=== PATIENT | male | born 1950 | race Caucasian/White ===

== ENCOUNTER → 2016-03-03 | Day surgery (SDC) | payer BC ==
[2016-02-27 15:04] VITALS: Ht 177.8 cm; Wt 79.5 kg
[~2016-03-03] VITALS: Ht 177.8 cm; Wt 79.5 kg
[~2016-03-03] MED LIST: 500ML BSS 0.3ML EPI 1:1000PF IRRIG ONE; ACETAMINOPHEN 325 MG TAB PO PRN; AMVISC PLUS 0.8ML SYRINGE INT OCU ONE; ATROPINE SULFATE 0.1 MG/ML 5ML SYR IV PRN; BROM0.07 OPR; BSS FLUSH ONE; EpHEDrine SULFATE INJ 50 MG/ML AMP IV PRN; EpINEphrine INJ 1MG/ML AMP 1 MG/ML AMP ONE; FENTANYL CITRATE INJ 50 MCG/1 ML 2 ML VIAL IV PRN; FLUMAZENIL 0.1 MG/1 ML 10 ML VIAL IV PRN; HYDROmorphone INJ 2 MG/ML SYR/VIAL IV PRN; LABETALOL HCL IV 5 MG/ML 20ML IV PRN; LACTATED RINGER'S 1000ML 500 ML IV SCH; LIDOCAINE 3.5% OPH GEL PER APPLICATION CHARGE ONE; LIDOCAINE HCL 1% MPF 2 ML VIAL ONE; MEPERIDINE HCL 25 MG/ML CARP IV PRN; MIDAZOLAM HCL 1 MG/ML 2ML VIAL ONE; NALOXONE HCL 0.4 MG/1 ML VIAL/CARP IV PRN; ONDANSETRON INJ 2 MG/ML 2 ML VIAL IV PRN; PHENYLEPHRINE 100MCG/ML 5ML SYR IV PRN; PHENYLEPHRINE HCL 10% OP SOLN PER DROP CHARGE OPR SCH; POVIDONE-IODINE OP SOLN 30 ML BTL ONE; PRED1SUS3 OPR; PROPARACAINE 0.5% OP SOLN PER DROP CHARGE OPR SCH; SODIUM CHLORIDE 0.9% 500ML IV SCH; TOBRAMYCIN/DEXAMETHASONE OPH OINT PER APPLN CHARGE ONE
[2016-03-03] MEDS: PHENYLEPHRINE HCL 2.5% OP SOLN PER DROP CHARGE OPR SCH ×2 (07:29→07:34)
[2016-03-03] MEDS: TROPICAMIDE 1% OP SOLN PER DROP CHARGE OPR SCH ×2 (07:30→07:35)
[2016-03-03] MEDS: CYCLOPENTOLATE HCL 1% OP SOLN PER DROP CHARGE OPR SCH ×2 (07:31→07:36)
[2016-03-03] MEDS: KETOROLAC 0.5% OP SOLN PER DROP CHARGE OPR SCH ×2 (07:32→07:37)
[2016-03-03] MEDS: GATIFLOXACIN OP SOLN PER DROP CHARGE OPR SCH ×2 (07:33→07:43)
--- NOTE | 2016-03-03 07:51 | History & Physical Bridge - [place] ---
H&P Re-Evaluation Bridge Note: I have examined the patient, reviewed the History & Physical and in the interval since the performance of the History & Physical I have noted the following changes of clinical significance: No changes noted
--- NOTE | 2016-03-03 08:33 | Discharge Instructions-SurgCtr ---
Discharge Instructions Visit Reason for Visit: Cataract Right Eye Discharge Discharge Diagnosis / Problem: cataract Discharge Goals Goal(s): Improve function Activity Recommendations Activity Limitations: per Instructions/Follow-up section Anesthesia . Post Anesthesia Instructions: If you have had General Anesthesia or IV Sedation: * Do not drive today. * Resume driving when surgeon permits. * Do not make important decisions or sign legal documents today. * Call surgeon for: 1. Temperature elevations greater than 101 degrees F. 2. Uncontrollable pain. 3. Excessive bleeding. 4. Persistent nausea and vomiting. 5. Medication intolerance (nausea, vomiting or rash). * For nausea and vomiting use only clear liquids such as: tea, soda, bouillon until nausea subsides, then gradually increase diet as tolerated. * If you have any concerns or questions, call your surgeon's office. If physician is unavailable and it is an emergency, call 911 or go to the nearest emergency room. . Instructions / Follow-Up Instructions / Follow-Up ACTIVITY RECOMMENDATIONS: * No strenuous lifting, jogging or running for 4 days * No swimming or yard work for 1 week. * Limited bending is permitted, such as putting on shoes. RETURN TO SCHOOL/WORK: No work until seen by physician in office. MEDICATIONS: Resume previous medications unless instructed otherwise by your surgeon. This includes eye drops for glaucoma. Zymaxid/Gatifloxacin (amaro cap) - one drop every 2 hours until bedtime Nevanac/Ilevro/Prolensa/Ketorolac (cano cap) - one drop every 4 hours until bedtime Prednisolone (white/pink cap, SHAKE WELL) - one drop every 2 hours until bedtime Starting tomorrow - all 3 drops every 4 hours until seen in the office Optive drops - as needed for discomfort SPECIAL CARE INSTRUCTIONS: * Wear eyeshield when sleeping, for four nights. * You may wear your own glasses or sunglasses while awake. * You may read or watch TV * You may shower and wash your face, but be gentle around the eye and pat dry. * Blurry vision and mild irritation are normal. * Call office if pain is more severe or vision becomes dark at . FOLLOW UP VISIT: Follow-up with Dr Bernard tomorrow. Diet Recommendations Home Diet: resume previous diet Pending Studies Studies pending at discharge: no Medical Emergencies . Who to Call and When: Medical Emergencies: If at any time you feel your situation is an emergency, please call 911 immediately. . Non-Emergent Contact Non-Emergency issues call your: Mlt . . "Provider Documentation" section prepared by Jesse Bernard.
--- NOTE | 2016-03-03 08:34 | [facility] Operative Report ---
Operative Report 1. PREOPERATIVE DIAGNOSIS: Cataract of the right eye. 2. POSTOPERATIVE DIAGNOSIS: Same. 3. PROCEDURE: Phacoemulsification with intraocular lens implantation of the right eye. SURGEON: Dr. Jesse Bernard. ANESTHESIA: Topical Lidocaine gel, 1% Non- Preserved intracameral Lidocaine, and monitored intravenous sedation. INDICATIONS FOR THE PROCEDURE: The patient is a 65 - year-old male with a history of cataract of the right eye causing significant visual impairment. The details of the proposed procedure were explained to the patient who asked appropriate questions and following discussion of all risks, benefits and alternatives agreed to have the procedure done. 4. OPERATION AND FINDINGS: DESCRIPTION OF PROCEDURE: After informed consent was obtained, the patient was brought to the Operating Room at the [facility]. The patient was placed in a supine position and then the right eye was prepped and draped in the usual sterile fashion for intraocular surgery. A drop of topical Lidocaine gel was placed in the operative eye. A wire lid speculum was then placed in the fornices. A corneal paracentesis was then created temporally. The Non-Preserved Lidocaine was then instilled into the anterior chamber. The anterior chamber was then pressurized with viscoelastic. A 2.0 mm clear corneal incision was then created temporally. A cystotome was inserted into the anterior chamber and used to create a tear in the anterior lens capsule. This capsular tear was then used to create a small flap and the flap was dragged in a counterclockwise direction in order to create a continuous curvilinear capsulorrhexis. Hydrodissection was accomplished with balanced salt solution. Phacoemulsification of the lens nucleus was then performed in a standard [id number] technique. The phaco time was 31 seconds with an average power of 19 %. The remaining cortical material was removed using irrigation aspiration. The capsular bag was then filled with viscoelastic. A Bausch & Lomb MI60L +24.5 diopters lens was then loaded into the injector and injected into the capsular bag. The remaining viscoelastic was removed with the irrigation aspiration handpiece. The wound was hydrated and then checked and found to be watertight. The intraocular pressure was checked and found to be adequate. The wire lid speculum was removed and the patient's face was cleaned and dried. TobraDex ointment was placed in the inferior fornix. The patient was discharged to the Recovery Room having tolerated the procedure well. There were no complications. The patient will be seen tomorrow in the office for follow-up. I attest to the content of the Intraoperative Record and any orders documented therein. Any exceptions are noted below.
[2016-03-03 08:36] VITALS: TEMP 36.9
--- NOTE | 2016-03-03 08:50 | Anesthesia Progress Nt - [facility] ---
Anesthesia Post Op Note Date & Time Mar 03, 2016 at 08:50 Vital Signs Pain Intensity: 0 Vital Signs Past 12 Hours Date Time Temp Pulse Resp B/P Pulse Ox O2 Delivery O2 Flow Rate FiO2 03/03/16 08:36 36.9 73 16 105/70 96 Room Air 03/03/16 07:21 36.5 83 16 135/83 100 Room Air Notes Mental Status: alert / awake / arousable, participated in evaluation Pt Amnestic to Procedure: Yes Nausea / Vomiting: adequately controlled Pain: adequately controlled Airway Patency, RR, SpO2: stable & adequate BP & HR: stable & adequate Hydration State: stable & adequate Anesthetic Complications: no major complications apparent
[2016-03-03 09:07] VITALS: BP 119/81; PULSE 76; O2SAT 98
== END | disposition home or self-care (01) ==
LOC: X.SURG 07:13
PROVIDERS: ATTEND Ophthalmology
DX: H26.9 Unspecified cataract (principal)

== ENCOUNTER → 2016-03-24 | Day surgery (SDC) | payer BC ==
[2016-03-16 10:11] VITALS: Ht 177.8 cm; Wt 79.5 kg
[~2016-03-24] VITALS: Ht 177.8 cm; Wt 79.5 kg
[~2016-03-24] MED LIST changes: -FENTANYL CITRATE INJ 50 MCG/1 ML 2 ML VIAL IV PRN; -FLUMAZENIL 0.1 MG/1 ML 10 ML VIAL IV PRN; -HYDROmorphone INJ 2 MG/ML SYR/VIAL IV PRN; -LABETALOL HCL IV 5 MG/ML 20ML IV PRN; -MEPERIDINE HCL 25 MG/ML CARP IV PRN; -NALOXONE HCL 0.4 MG/1 ML VIAL/CARP IV PRN; +OCUCOAT 1 ML SOLN IO ONE; -ONDANSETRON INJ 2 MG/ML 2 ML VIAL IV PRN; -PHENYLEPHRINE 100MCG/ML 5ML SYR IV PRN; +PHENYLEPHRINE HCL 10% OP SOLN PER DROP CHARGE OPL SCH; -PHENYLEPHRINE HCL 10% OP SOLN PER DROP CHARGE OPR SCH; +PROPARACAINE 0.5% OP SOLN PER DROP CHARGE OPL SCH; -PROPARACAINE 0.5% OP SOLN PER DROP CHARGE OPR SCH; -SODIUM CHLORIDE 0.9% 500ML IV SCH
[2016-03-24] MEDS: PHENYLEPHRINE HCL 2.5% OP SOLN PER DROP CHARGE OPL SCH ×2 (10:56→11:02)
[2016-03-24] MEDS: TROPICAMIDE 1% OP SOLN PER DROP CHARGE OPL SCH ×2 (10:57→11:03)
[2016-03-24] MEDS: CYCLOPENTOLATE HCL 1% OP SOLN PER DROP CHARGE OPL SCH ×2 (10:58→11:04)
[2016-03-24] MEDS: KETOROLAC 0.5% OP SOLN PER DROP CHARGE OPL SCH ×2 (10:59→11:05)
[2016-03-24] MEDS: GATIFLOXACIN OP SOLN PER DROP CHARGE OPL SCH ×2 (11:00→11:10)
--- NOTE | 2016-03-24 11:16 | History & Physical Bridge - [place] ---
H&P Re-Evaluation Bridge Note: I have examined the patient, reviewed the History & Physical and in the interval since the performance of the History & Physical I have noted the following changes of clinical significance: Diagnosis: Left Cataract Procedure: Left Cataract Removal with Lens Implant No changes noted
--- NOTE | 2016-03-24 12:01 | Discharge Instructions-SurgCtr ---
Discharge Instructions Visit Reason for Visit: Cataract Left Eye Discharge Discharge Diagnosis / Problem: cataract Discharge Goals Goal(s): Improve function Activity Recommendations Activity Limitations: per Instructions/Follow-up section Anesthesia . Post Anesthesia Instructions: If you have had General Anesthesia or IV Sedation: * Do not drive today. * Resume driving when surgeon permits. * Do not make important decisions or sign legal documents today. * Call surgeon for: 1. Temperature elevations greater than 101 degrees F. 2. Uncontrollable pain. 3. Excessive bleeding. 4. Persistent nausea and vomiting. 5. Medication intolerance (nausea, vomiting or rash). * For nausea and vomiting use only clear liquids such as: tea, soda, bouillon until nausea subsides, then gradually increase diet as tolerated. * If you have any concerns or questions, call your surgeon's office. If physician is unavailable and it is an emergency, call 911 or go to the nearest emergency room. . Instructions / Follow-Up Instructions / Follow-Up ACTIVITY RECOMMENDATIONS: * No strenuous lifting, jogging or running for 4 days * No swimming or yard work for 1 week. * Limited bending is permitted, such as putting on shoes. RETURN TO SCHOOL/WORK: No work until seen by physician in office. MEDICATIONS: Resume previous medications unless instructed otherwise by your surgeon. This includes eye drops for glaucoma. Zymaxid/Gatifloxacin (amaro cap) - one drop every 2 hours until bedtime Nevanac/Ilevro/Prolensa/Ketorolac (cano cap) - one drop every 4 hours until bedtime Prednisolone (white/pink cap, SHAKE WELL) - one drop every 2 hours until bedtime Starting tomorrow - all 3 drops every 4 hours until seen in the office Optive drops - as needed for discomfort SPECIAL CARE INSTRUCTIONS: * Wear eyeshield when sleeping, for four nights. * You may wear your own glasses or sunglasses while awake. * You may read or watch TV * You may shower and wash your face, but be gentle around the eye and pat dry. * Blurry vision and mild irritation are normal. * Call office if pain is more severe or vision becomes dark at . FOLLOW UP VISIT: Follow-up with Dr Bernard tomorrow. Procedures Procedures Performed: Left Cataract Phacoemulsification With Intraocular Lens Implant Pending Studies Studies pending at discharge: no Medical Emergencies . Who to Call and When: Medical Emergencies: If at any time you feel your situation is an emergency, please call 911 immediately. . Non-Emergent Contact Non-Emergency issues call your: [employer] . . "Provider Documentation" section prepared by Jesse Bernard.
--- NOTE | 2016-03-24 12:02 | [facility] Operative Report ---
Operative Report 1. PREOPERATIVE DIAGNOSIS: Cataract of the left eye. 2. POSTOPERATIVE DIAGNOSIS: Same. 3. PROCEDURE: Phacoemulsification with intraocular lens implantation of the left eye. SURGEON: Dr. Jesse Bernard. ANESTHESIA: Topical Lidocaine gel, 1% Non- Preserved intracameral Lidocaine, and monitored intravenous sedation. INDICATIONS FOR THE PROCEDURE: The patient is a 65 - year-old male with a history of cataract of the left eye causing significant visual impairment. The details of the proposed procedure were explained to the patient who asked appropriate questions and following discussion of all risks, benefits and alternatives agreed to have the procedure done. 4. OPERATION AND FINDINGS: DESCRIPTION OF PROCEDURE: After informed consent was obtained, the patient was brought to the Operating Room at the [facility]. The patient was placed in a supine position and then the left eye was prepped and draped in the usual sterile fashion for intraocular surgery. A drop of topical Lidocaine gel was placed in the operative eye. A wire lid speculum was then placed in the fornices. A corneal paracentesis was then created temporally. The Non-Preserved Lidocaine was then instilled into the anterior chamber. The anterior chamber was then pressurized with viscoelastic. A 2.0 mm clear corneal incision was then created temporally. A cystotome was inserted into the anterior chamber and used to create a tear in the anterior lens capsule. This capsular tear was then used to create a small flap and the flap was dragged in a counterclockwise direction in order to create a continuous curvilinear capsulorrhexis. Hydrodissection was accomplished with balanced salt solution. Phacoemulsification of the lens nucleus was then performed in a standard [id number] technique. The phaco time was 24 seconds with an average power of 12 %. The remaining cortical material was removed using irrigation aspiration. The capsular bag was then filled with viscoelastic. A Bausch & Lomb MI60L +24.5 diopters lens was then loaded into the injector and injected into the capsular bag. The remaining viscoelastic was removed with the irrigation aspiration handpiece. The wound was hydrated and then checked and found to be watertight. The intraocular pressure was checked and found to be adequate. The wire lid speculum was removed and the patient's face was cleaned and dried. TobraDex ointment was placed in the inferior fornix. The patient was discharged to the Recovery Room having tolerated the procedure well. There were no complications. The patient will be seen tomorrow in the office for follow-up. I attest to the content of the Intraoperative Record and any orders documented therein. Any exceptions are noted below.
--- NOTE | 2016-03-24 12:20 | Anesthesia Progress Nt - [facility] ---
Anesthesia Post Op Note Date & Time Mar 24, 2016 at 12:20 Vital Signs Pain Intensity: 0 Vital Signs Past 12 Hours Date Time Temp Pulse Resp B/P Pulse Ox O2 Delivery O2 Flow Rate FiO2 03/24/16 12:04 37.6 78 16 114/76 97 Room Air 03/24/16 10:50 36.8 84 20 134/86 98 Room Air Notes Mental Status: alert / awake / arousable, participated in evaluation Pt Amnestic to Procedure: Yes Nausea / Vomiting: adequately controlled Pain: adequately controlled Airway Patency, RR, SpO2: stable & adequate BP & HR: stable & adequate Hydration State: stable & adequate Anesthetic Complications: no major complications apparent
[2016-03-24 12:28] VITALS: BP 128/77; PULSE 71; TEMP 37; O2SAT 100
== END | disposition home or self-care (01) ==
LOC: X.SURG 10:33
PROVIDERS: ATTEND Ophthalmology
DX: H26.9 Unspecified cataract (principal); Z98.41 Cataract extraction status, right eye; Z82.49 Family history of ischemic heart disease and other diseases of the circulatory system; Z80.42 Family history of malignant neoplasm of prostate; Z68.25 Body mass index [BMI] 25.0-25.9, adult

== ENCOUNTER → 2017-02-09 | Outpatient (CLI) | payer BC ==
[~2017-02-09] MED LIST changes: -500ML BSS 0.3ML EPI 1:1000PF IRRIG ONE; -ACETAMINOPHEN 325 MG TAB PO PRN; -AMVISC PLUS 0.8ML SYRINGE INT OCU ONE; -ATROPINE SULFATE 0.1 MG/ML 5ML SYR IV PRN; -BSS FLUSH ONE; -EpHEDrine SULFATE INJ 50 MG/ML AMP IV PRN; -EpINEphrine INJ 1MG/ML AMP 1 MG/ML AMP ONE; -LACTATED RINGER'S 1000ML 500 ML IV SCH; -LIDOCAINE 3.5% OPH GEL PER APPLICATION CHARGE ONE; -LIDOCAINE HCL 1% MPF 2 ML VIAL ONE; -MIDAZOLAM HCL 1 MG/ML 2ML VIAL ONE; -OCUCOAT 1 ML SOLN IO ONE; -PHENYLEPHRINE HCL 10% OP SOLN PER DROP CHARGE OPL SCH; -POVIDONE-IODINE OP SOLN 30 ML BTL ONE; -PROPARACAINE 0.5% OP SOLN PER DROP CHARGE OPL SCH; -TOBRAMYCIN/DEXAMETHASONE OPH OINT PER APPLN CHARGE ONE
--- NOTE | 2017-02-09 09:25 | DIAGNOSTIC IMAGING REPORT ---
CHEST 2 VIEWS ROUTINE CLINICAL HISTORY: 66 years-old Male presenting with CHRONIC COUGH. TECHNIQUE: PA and lateral views of the chest were obtained. COMPARISON: None. FINDINGS: Atherosclerosis of aortic arch. Cardiac silhouette normal in size. Mild hyperinflation of the lungs. Lungs and pleural spaces clear. Degenerative changes of the thoracic spine. Upper abdomen normal. IMPRESSION: 1. Mild hyperinflation could suggest underlying emphysema. Otherwise no acute cardiopulmonary disease. Electronically signed by: Cristian Smith M.D. 02/09/2017 9:23 AM Dictated Date/Time: 02/09/2017 9:22 AM
[2017-02-09 13:29] LABS: BLOOD UREA NITROGEN 17 mg/dl (7-18); CARBON DIOXIDE 26 mmol/L (21-32); CHOLESTEROL 238 mg/dl (0-200); CREATININE 1.15 mg/dl (0.60-1.40); GLUCOSE 100 mg/dl (70-99); POTASSIUM 4.3 mmol/L (3.5-5.1); SODIUM 137 mmol/L (136-145)
[2017-02-09 13:35] LABS: LDL CHOLESTEROL CALCULATED 160 mg/dl
== END | disposition home or self-care (01) ==
LOC: C.LABPVFM 08:59
PROVIDERS: ATTEND Family Medicine
DX: Z12.5 Encounter for screening for malignant neoplasm of prostate (principal); Z13.1 Encounter for screening for diabetes mellitus; R35.1 Nocturia; E78.5 Hyperlipidemia, unspecified; R05 Cough

== ENCOUNTER 2020-08-05 23:53 | Inpatient (IN) ==
[2020-08-06] MEDS ORDERED: DEXAMETHASONE SOD INJ 4 MG/ML VIAL IV STA (01:21)
[2020-08-06] MEDS ORDERED: SODIUM CHLORIDE 0.9% 500 ML IV ONE (01:21)
[2020-08-06 01:36] LABS: Basophils # (auto) 0.03 K/uL (0-0.2); Basophils % (auto) 0.2 %; Eosinophils # (auto) 0.02 K/uL (0-0.5); Eosinophils % (auto) 0.1 %; Hematocrit (blood only) 45.7 % (42-52); Hemoglobin 16.1 g/dL (14.0-18.0); Immature Granulocytes # (auto) 0.04 K/uL (0.00-0.02); Immature Granulocytes % (auto) 0.3 %; Lymphocytes % (auto) 9.5 %; Mean Corpuscular Hemoglobin 32.9 pg (25-34); Mean Corpuscular Hgb Conc 35.2 g/dL (32-36); Mean Corpuscular Volume 93.5 fL (80-100); Mean Platelet Volume 10.3 fL (7.4-10.4); Monocytes % (auto) 10.2 %; Neutrophils # (auto) 12.52 K/uL (1.4-6.5); Neutrophils % (auto) 79.7 %; Platelet Count 207 K/uL (130-400); RDW Coefficient of Variation 12.5 % (11.5-14.5); RDW Standard Deviation 43.3 fL (36.4-46.3); Red Blood Count 4.89 M/uL (4.7-6.1); White Blood Count 15.71 K/uL (4.8-10.8)
[2020-08-06 01:53] LABS: Albumin Level 3.9 gm/dl (3.4-5.0); BUN Creatinine Ratio 8.8 (10-20); Calcium 9.3 mg/dl (8.5-10.1); Creatinine Clr Calc Pharmacy 62.9 ml/min; Est GFR (African American) 76.7 ml/min; Est GFR (Non-African American) 66.2 ml/min
[2020-08-06 01:55] LABS: Bilirubin,Total 1.2 mg/dl (0.2-1); Total Protein 7.9 gm/dl (6.4-8.2)
[2020-08-06] MEDS ORDERED: OPTIRAY 320 100ml IV ONE (02:32)
--- NOTE | 2020-08-06 04:20 | Emergency Department Note ---
Impression & Plan Acute epiglottitis ED Provider Note NAME: NADIA LUNDY AGE: 69 SEX: M ARRIVES VIA: Walk-In INFORMANT: Patient ED PROVIDER(S): Mally Landeros DO CHIEF COMPLAINT: Severe sore throat PLAN: Disposition: Admitted to the ICU Condition: Critical MEDICAL DECISION MAKING: This is a 69-year-old male patient who presents to the emergency department with a severe sore throat. Patient felt as if he was choking on his own spit. He had a distorted voice and would apply pressure to his neck in order to speak. CT scan confirmed evidence of epiglottitis with airway narrowing. I discussed the case with Dr. Newell and Dr. Jeffries. I consulted Dr. Kumar from ENT and she came to the emergency department to evaluate the patient and scoped him at the bedside. Triage Nursing notes reviewed and agree with them. Additional history obtained from as is at the bedside Vital Signs: reviewed and unremarkable Differential diagnosis: Pharyngitis, tonsillitis, epiglottitis, COVID-19, mono, strep throat ER treatment provided: IV Decadron IV normal saline IV vancomycin IV Rocephin Diagnostics interpreted by me: Cardiac Monitoring: Normal sinus rhythm at a rate of 78 Laboratory studies: See below Imaging studies: As per stat rad CT neck: Diffuse enlarged and edematous epiglottis consistent with epiglottitis with severe narrowing of the underlying airway. Near complete effacement of the vallecula and piriform sinuses. Mildly enlarged right tonsil with 7 x 11 mm central hypodensity consistent with tonsillitis with tonsillar abscess. Patent subglottic airway. Cervical soft tissues are unremarkable. No mass or adenopathy. Visualized upper lungs and mediastinal structures are unremarkable. No acute osseous abnormality. Mucous retention cyst or polyp in the right maxillary sinus. Consultation(s): Dr. Kumar-ENT HPI: 69/M arrives for evaluation of sore throat. The patient presents to the emergency department with a worsening sore throat that started yesterday. The patient called his primary care office earlier in the day complaining of a severe sore throat. They recommended the patient get COVID-19 testing but he declined. Patient notes that he has a tooth in the bottom right part of his mouth that has been bothering him and wondered if the throat pain could be coming from this. He then became concerned when he started to choke on his own spit. He denies any nausea vomiting or fevers. ROS: See above HPI for pertinent positives & negatives. A total of 10 systems reviewed and were otherwise negative. PAST MEDICAL HISTORY:See Below PAST SURGICAL HISTORY:See Below FAMILY HISTORY:See Below SOCIAL HISTORY:See Below HOME MEDICATIONS:See list ALLERGIES:None VITALS:See Below PHYSICAL EXAMINATION: HEENT: Head - normocephalic and atraumatic Pupils are equal, round, and reactive to light. Extraocular eye muscles are intact, and sclera are anicteric. Nose - moist nasal mucosa without discharge. Mouth - moist buccal mucosa. Oropharynx is nonerythematous and there is no tonsillar exudate or edema noted. The patient has significant gingival irritation and decay with fracture to a right lower molar Neck: Supple; moderate anterior cervical lymphadenopathy on the right with no evidence of nuchal rigidity or submental fullness. Heart: Regular rate and rhythm. There is a normal S1 and S2 with no murmurs, clicks, or gallops appreciated. Lungs: Clear to auscultation bilaterally with no wheezes, rales, or rhonchi. Abdomen: Soft, completely nontender, nondistended, with good bowel sounds. There are no palpable pulsatile masses or hepatosplenomegaly. There is no guarding, rigidity, or rebound noted. Extremities: No evidence of cyanosis, clubbing, or edema. There are easily palpable peripheral pulses. Skin: warm and dry with good turgor and no rashes. ED COURSE: Times/Reassessments: 0045: The patient was evaluated in room C 12. A complete history and physical was performed. An IV lock was initiated and labs are drawn as above. The patient was given 10 mg of IV Decadron. He was started on IV normal saline solution. An order was placed for continuous cardiac monitoring. The patient was in a normal sinus rhythm at a rate of 78. Covid testing was performed. The patient went for CT scan of the neck as described above. Upon return from radiology, the patient was started on IV vancomycin and IV Rocephin. I discussed the case with the [facility] hospitalist and the critical care assistant operator. I consulted the ENT specialist. She came to the bedside to scope the patient. Patient remained hemodynamically stable with a patent airway while here in the emergency department. He will be admitted to the ICU. I have personally spent greater than 60 minutes of critical care time in the direct management of this patient. This includes bedside care, interpretation of diagnostic studies, and testing, discussion with consultants, patient, and family members, and other required patient management activities. This 60 minutes is in excess of all separately billable procedures. Mally Landeros DO Past Med/Surg History Medical History (Updated 08/07/20 @ 09:09 by Jacques Dixon MD) Actinic keratoses Hyperlipidemia Hypophosphatemia Surgical History Hx of cataract surgery Hx of LASIK Family History Father Myocardial infarction Prostate cancer Diabetes Denies family history of Ovarian cancer Breast cancer Colorectal cancer Hypertension Social History Smoking Status: Never smoker Second Hand Exposure: No; Hx Alcohol Use: No Hx Substance Use: No Communication Ability: Effective Implementation Advisor Required: No Beliefs That Will Affect Care: None marital status: Current Living Situation: Spouse current occupational status: employed current occupation: [email or web address] Feels Safe at Home: Yes caffeine: No Dental Care, Regularly: No Physical Activity Frequency: Does not Exercise Seatbelt Use: sometimes Sunscreen Use: No Assistive Devices: None Allergies Allergies Allergy/AdvReac Type Severity Reaction Status Date / Time No Known Allergies Allergy Verified 08/06/20 00:52 Home Meds Home Medications Medication Instructions Recorded Confirmed No Known Home Medications 08/05/20 08/06/20 Results & Data (ED) Vital Signs Vital Signs - 24 hr 08/05/20 23:58 08/06/20 01:19 08/06/20 01:24 Temperature 37.3 C Temperature Source Temporal Artery Scan Pulse Rate 107 H 100 H 97 H Pulse Rate from SpO2 Sensor 101 H 98 H Respiratory Rate 18 22 21 Respiratory Effort / Characteristics Non-Labored Spontaneous Respiratory Depth Normal Respiratory Pattern Regular Blood Pressure 143/84 H 156/97 H Blood Pressure Mean 103 116 Blood Pressure Position Lying Pulse Oximetry 95 96 96 Oxygen Delivery Method Room Air Sepsis Recent Fever Within 48 Hours No Sepsis New/Unexplained Change in Mental Status No Sepsis Action Taken by Nursing No Action Required 08/06/20 01:30 08/06/20 02:00 08/06/20 02:31 Temperature Temperature Source Pulse Rate 98 H 98 H 106 H Pulse Rate from SpO2 Sensor 98 H 105 H Respiratory Rate 20 16 18 Respiratory Effort / Characteristics Respiratory Depth Respiratory Pattern Blood Pressure 169/94 H Blood Pressure Mean 119 Blood Pressure Position Pulse Oximetry 99 96 Oxygen Delivery Method Sepsis Recent Fever Within 48 Hours Sepsis New/Unexplained Change in Mental Status Sepsis Action Taken by Nursing 08/06/20 02:33 08/06/20 03:00 08/06/20 03:30 Temperature Temperature Source Pulse Rate 105 H 103 H 103 H Pulse Rate from SpO2 Sensor 106 H 103 H 105 H Respiratory Rate 16 17 20 Respiratory Effort / Characteristics Respiratory Depth Respiratory Pattern Blood Pressure Blood Pressure Mean Blood Pressure Position Pulse Oximetry 97 93 93 Oxygen Delivery Method Sepsis Recent Fever Within 48 Hours Sepsis New/Unexplained Change in Mental Status Sepsis Action Taken by Nursing 08/06/20 04:00 08/06/20 04:30 Temperature Temperature Source Pulse Rate 100 H 100 H Pulse Rate from SpO2 Sensor 100 H 100 H Respiratory Rate 21 20 Respiratory Effort / Characteristics Respiratory Depth Respiratory Pattern Blood Pressure Blood Pressure Mean Blood Pressure Position Pulse Oximetry 95 94 Oxygen Delivery Method Sepsis Recent Fever Within 48 Hours Sepsis New/Unexplained Change in Mental Status Sepsis Action Taken by Nursing Laboratory Data Result diagrams: 08/07/20 04:43 08/07/20 04:43 Lab Results 08/06/20 08/06/20 08/06/20 Range/Units 01:20 01:20 01:20 WBC 15.71 H (4.8-10.8) K/uL RBC 4.89 (4.7-6.1) M/uL Hgb 16.1 (14.0-18.0) g/dL Hct 45.7 (42-52) % MCV 93.5 (80-100) fL MCH 32.9 (25-34) pg MCHC 35.2 (32-36) g/dL RDW Std Deviation 43.3 (36.4-46.3) fL RDW Coeff of [place] 12.5 (11.5-14.5) % Plt Count 207 (130-400) K/uL MPV 10.3 (7.4-10.4) fL Immature Gran % (Auto) 0.3 % Neut % (Auto) 79.7 % Lymph % (Auto) 9.5 % [place] % (Auto) 10.2 % Eos % (Auto) 0.1 % Baso % (Auto) 0.2 % Neut # (Auto) 12.52 H (1.4-6.5) K/uL Lymph # (Auto) 1.50 (1.2-3.4) K/uL [place] # (Auto) 1.60 H (0.11-0.59) K/uL Eos # (Auto) 0.02 (0-0.5) K/uL Baso # (Auto) 0.03 (0-0.2) K/uL Immature Gran # (Auto) 0.04 H (0.00-0.02) K/uL Sodium 137 (136-145) mmol/L Potassium 4.0 (3.5-5.1) mmol/L Chloride 104 (98-107) mmol/L Carbon Dioxide 26 (21-32) mmol/L Anion Gap 7.0 (3-11) BUN 10 (7-18) mg/dl Creatinine 1.14 (0.6-1.4) mg/dl Est Cr Clr Drug Dosing 62.9 ml/min Est GFR ( Amer) 76.7 ml/min Est GFR (Non-Af Amer) 66.2 ml/min BUN/Creatinine Ratio 8.8 L (10-20) Glucose 124 H (70-99) mg/dl Calcium 9.3 (8.5-10.1) mg/dl Total Bilirubin 1.2 H (0.2-1) mg/dl AST 16 (15-37) U/L ALT 22 (12-78) U/L Alkaline Phosphatase 70 (45-117) U/L Total Protein 7.9 (6.4-8.2) gm/dl Albumin 3.9 (3.4-5.0) gm/dl Globulin 4.0 (2.5-4.0) gm/dl Albumin/Globulin Ratio 1.0 (0.9-2) COVID-19 Eval Order Covid19 at [facility] SARS-CoV-2 (PCR) (Negative) 08/06/20 Range/Units 01:20 WBC (4.8-10.8) K/uL RBC (4.7-6.1) M/uL Hgb (14.0-18.0) g/dL Hct (42-52) % MCV (80-100) fL MCH (25-34) pg MCHC (32-36) g/dL RDW Std Deviation (36.4-46.3) fL RDW Coeff of [place] (11.5-14.5) % Plt Count (130-400) K/uL MPV (7.4-10.4) fL Immature Gran % (Auto) % Neut % (Auto) % Lymph % (Auto) % [place] % (Auto) % Eos % (Auto) % Baso % (Auto) % Neut # (Auto) (1.4-6.5) K/uL Lymph # (Auto) (1.2-3.4) K/uL [place] # (Auto) (0.11-0.59) K/uL Eos # (Auto) (0-0.5) K/uL Baso # (Auto) (0-0.2) K/uL Immature Gran # (Auto) (0.00-0.02) K/uL Sodium (136-145) mmol/L Potassium (3.5-5.1) mmol/L Chloride (98-107) mmol/L Carbon Dioxide (21-32) mmol/L Anion Gap (3-11) BUN (7-18) mg/dl Creatinine (0.6-1.4) mg/dl Est Cr Clr Drug Dosing ml/min Est GFR ( Amer) ml/min Est GFR (Non-Af Amer) ml/min BUN/Creatinine Ratio (10-20) Glucose (70-99) mg/dl Calcium (8.5-10.1) mg/dl Total Bilirubin (0.2-1) mg/dl AST (15-37) U/L ALT (12-78) U/L Alkaline Phosphatase (45-117) U/L Total Protein (6.4-8.2) gm/dl Albumin (3.4-5.0) gm/dl Globulin (2.5-4.0) gm/dl Albumin/Globulin Ratio (0.9-2) COVID-19 Eval Order SARS-CoV-2 (PCR) NEGATIVE (Negative) Administered Medications Famotidine 20 mg/ Syringe 5 mls @ 2.5 mls/min IV Q12H EPHRAIM Stop: 09/05/20 07:13 Last Admin: 06/16/21 07:52 Dose: 2.5 mls/min Documented by: [id number] Admin: 08/06/20 20:02 Dose: 2.5 mls/min Documented by: [id number] Admin: 08/06/20 08:04 Dose: 2.5 mls/min Documented by: [id number] Ampicillin Sodium/Sulbactam Sodium 3,000 mg/ Sodium Chloride 108 mls @ 216 mls/hr IV Q6H EPHRAIM Stop: 08/16/20 11:59 Last Infusion: 08/07/20 18:19 Dose: 0 mls/hr Documented by: [id number] Admin: 08/07/20 17:49 Dose: 216 mls/hr Documented by: [id number] Infusion: 08/07/20 13:30 Dose: 0 mls/hr Documented by: [id number] Admin: 08/07/20 12:17 Dose: 216 mls/hr Documented by: [id number] Infusion: 08/07/20 05:56 Dose: 0 mls/hr Documented by: [id number] Admin: 08/07/20 05:26 Dose: 216 mls/hr Documented by: [id number] Infusion: 08/07/20 00:31 Dose: 0 mls/hr Documented by: [id number] Admin: 08/06/20 23:51 Dose: 216 mls/hr Documented by: [id number] Infusion: 08/06/20 18:21 Dose: 0 mls/hr Documented by: [id number] Admin: 08/06/20 17:43 Dose: 216 mls/hr Documented by: [id number] Infusion: 08/06/20 12:28 Dose: 0 mls/hr Documented by: [id number] Admin: 08/06/20 11:56 Dose: 216 mls/hr Documented by: [id number] Dexamethasone 10 mg/ Syringe 2.5 mls @ 1 mls/min IV Q8H EPHRAIM Stop: 09/05/20 11:59 Last Admin: 08/07/20 12:17 Dose: 1 mls/min Documented by: [id number] Admin: 08/07/20 04:02 Dose: 1 mls/min Documented by: [id number] Admin: 08/06/20 20:03 Dose: 1 mls/min Documented by: [id number] Admin: 08/06/20 12:28 Dose: 1 mls/min Documented by: [id number] Discontinued Medications Dexamethasone (Dexamethasone Sod Inj 4 Mg/Ml Vial) 10 mg IV NOW STA Stop: 08/06/20 01:22 Last Admin: 08/06/20 01:31 Dose: 10 mg Documented by: [id number] Sodium Chloride (Nss) 500 mls @ 999 mls/hr IV .Q31M ONE Stop: 08/06/20 01:51 Last Infusion: 08/06/20 02:12 Dose: 0 mls/hr Documented by: [id number] Admin: 08/06/20 01:32 Dose: 999 mls/hr Documented by: [id number] Ceftriaxone Sodium (Rocephin) 2,000 mg in 70 mls @ 140 mls/hr IV NOW STA Stop: 08/06/20 04:56 Last Infusion: 08/06/20 05:40 Dose: 0 mls/hr Documented by: [id number] Admin: 08/06/20 05:09 Dose: 140 mls/hr Documented by: [id number] Vancomycin HCl 2,000 mg/ (Sodium Chloride) 540 mls @ 200 mls/hr IV NOW ONE Stop: 08/06/20 07:08 Last Infusion: 08/06/20 08:15 Dose: 0 mls/hr Documented by: [id number] Admin: 08/06/20 05:20 Dose: 200 mls/hr Documented by: [id number] Potassium Chloride/Sodium Chloride (Normal Saline W/20 Meq Kcl) 20 meq in 1,000 mls @ 100 mls/hr IV .Q10H EHPRAIM Stop: 09/05/20 07:13 Last Infusion: 08/07/20 09:18 Dose: 0 mls/hr Documented by: [id number] Admin: 08/07/20 04:02 Dose: 100 mls/hr Documented by: [id number] Infusion: 08/07/20 03:42 Dose: 100 mls/hr Documented by: [id number] Admin: 08/06/20 17:42 Dose: 100 mls/hr Documented by: [id number] Infusion: 08/06/20 17:42 Dose: 100 mls/hr Documented by: [id number] Admin: 08/06/20 08:04 Dose: 100 mls/hr Documented by: [id number] Azithromycin 500 mg/ Dextrose 255 mls @ 125 mls/hr IV Q24H EPHRAIM Stop: 08/16/20 07:13 Last Infusion: 08/06/20 09:57 Dose: 0 mls/hr Documented by: [id number] Admin: 08/06/20 08:04 Dose: 125 mls/hr Documented by: [id number] Dexamethasone 6 mg/ Syringe 1.5 mls @ 1 mls/min IV Q6H EPHRAIM Stop: 09/05/20 07:59 Last Admin: 08/06/20 08:04 Dose: 1 mls/min Documented by: [id number] Sodium Phosphate 21 mmol/ (Sodium Chloride) 507 mls @ 88 mls/hr IV ONE ONE Stop: 08/07/20 13:45 Last Infusion: 08/07/20 13:30 Dose: 0 mls/hr Documented by: [id number] Admin: 08/07/20 08:24 Dose: 88 mls/hr Documented by: [id number] Ioversol (Optiray 320 100ml) 94 ml IV ONCE ONE Stop: 08/06/20 02:33 Last Admin: 08/06/20 02:33 Dose: 94 ml Documented by: [id number] Discharge Plan Visit Data Chief Complaint: Sore Throat Stated Complaint: SORE THROAT, HURTS TO BREATHE ED Provider: Mally Landeros Discharge Problem: Acute epiglottitis Patient Disposition: Admitted As Inpatient Discharge Instructions Interventions: ED Discharge Assessment Last Done: 08/06/20 06:31 Discharge Problem: Acute epiglottitis Qualifiers: Airway obstruction: with obstruction Qualified Code(s): J05.11 - Acute epiglottitis with obstruction
[2020-08-06] MEDS ORDERED: cefTRIAXone SODIUM 2,000 MG/70 ML BAG IV STA (04:27)
[2020-08-06] MEDS ORDERED: VANCOMYCIN HCL 2,000 MG in SODIUM CHLORIDE 0.9% 500 ML IV ONE (04:27)
[2020-08-06] MEDS ORDERED: VANCOMYCIN CONSULT ACTIVE PRN ×2 (04:27→07:14)
--- NOTE | 2020-08-06 05:27 | History & Physical Report ---
Date of Service August 06, 2020 Assessment & Plan (1) Acute epiglottitis: Acute epiglottitis with severe underlying airway narrowing/acute tonsillitis with tonsillar abscess- Received dexamethasone 10 mg IV, ceftriaxone 2 g IV, vancomycin 2000 mg IV and NSS 500 mL in the ED Admit to the ICU Dexamethasone 6 mg IV every 6 hours Ceftriaxone 2 g IV daily Vancomycin IV per pharmacokinetic monitoring Azithromycin 500 mg IV daily NSS + KCl 20 mEq at 100 mils per hour Zofran 4 mg IV every 6 hours as needed Famotidine 20 mg IV every 12 hours Consult Parts Counter Representative Dr. Dixon Consult ENT Dr. Kumar Present on Admission?: Yes (2) Acute tonsillitis: See above Present on Admission?: Yes (3) Tonsillar abscess: See above Present on Admission?: Yes (4) Acute airway obstruction: see above Present on Admission?: Yes (5) Admitted to intensive care unit: See above Present on Admission?: Yes History of Present Illness Chief Complaint: The patient presents to the emergency department with 24 hours of worsening difficulty with swallowing foods and liquids call, and now unable to swallow his own secretions. Primary Care Provider: MARQUISE Ramos The patient is a 69-year-old male with a past medical history including hyperlipidemia, trigger finger, actinic keratoses and abscess. He presents with rapidly progressive dysphagia as noted above. He denies any recent travels or sick exposures. COVID-19 testing in the ED was negative. Significant abnormal laboratories: WBC 15.71, glucose 124, total bilirubin 1.2. CT of the soft tissues of the neck: Diffusely enlarged and edematous epiglottis consistent with epiglottitis with severe narrowing of the underlying airway. Near complete effacement of the vallecula and piriform sinuses. Mildly enlarged right tonsil with 7 x 11 mm central hypodensity consistent with tonsillitis with tonsillar abscess. Patent subglottic airway. Cervical soft tissues are unremarkable with no mass or adenopathy. Visualized upper lungs and mediastinal structures are unremarkable. No acute osseous abnormality. Mucous retention cyst or polyp in the right maxillary sinus In the emergency department patient received the following: Decadron 10 mg IV, ceftriaxone 2 g IV, vancomycin 2000 mg IV, and normal saline 500 mls. Allergies Allergy/AdvReac Type Severity Reaction Status Date / Time No Known Allergies Allergy Verified 08/06/20 00:52 Home Medications Medication Instructions Recorded Confirmed Type No Known Home Medications 08/05/20 08/06/20 History Past Med/Surg History Medical History (Updated 08/06/20 @ 05:43 by Roman Shea MD) Actinic keratoses Hyperlipidemia Surgical History Hx of cataract surgery Hx of LASIK Family History Father Myocardial infarction Prostate cancer Diabetes Denies family history of Ovarian cancer Breast cancer Colorectal cancer Hypertension Social History Smoking Status: Never smoker Second Hand Exposure: No; Hx Alcohol Use: No Hx Substance Use: No marital status: Current Living Situation: Spouse current occupational status: employed current occupation: [employer] Feels Safe at Home: Yes caffeine: No Dental Care, Regularly: No Physical Activity Frequency: Does not Exercise Seatbelt Use: sometimes Sunscreen Use: No Review of Systems Review of Systems: The patient denies chest pain, palpitations, lower extremity swelling, fevers, chills, sweats, nausea, vomiting, diarrhea , constipation, abdominal pain, pelvic pain, blood in urine or stool, dysuria, urinary frequency or urgency, lightheadedness, dizziness, headache, memory loss, loss of consciousness, rash, abnormal bruising or bleeding, imbalance, focal or generalized weakness, numbness or tingling in arms or legs, generalized arthralgias or myalgias, back or neck pain, or night sweats. The review of systems is otherwise negative other than for that already noted above, and at least 10 systems have been reviewed. Physical Exam Physical Exam: The patient is awake, alert and oriented 3, well developed and well nourished, normocephalic and atraumatic, lying in bed and in no acute distress. HEENT--PERRL, EOMI, mucous membranes and oropharynx dry. Patient finds it very difficult to open mouth and minimal view was obtained Neck--supple. No JVD. No bruits. Thyroid normal, trachea midline, no adenopathy. Heart--normal S1 and S2. No murmurs, rubs or gallops. Lungs--clear bilaterally, no respiratory distress, no accessory muscle use. Abdomen--normal bowel sounds and soft. Nontender. Nondistended, no hernias or masses, no organomegaly. Extremities--no cyanosis or clubbing. No edema. Dermatologic--normal skin turgor, normal color, no abnormal lymph nodes, no rash. Neurologic--cranial nerves II through XII grossly intact. Rheumatologic--normal range of motion. Psychiatric--normal affect. Results & Data Results & Data ([facility]) Vital Signs (Past 12 Hours) Vital Signs Temp Pulse Resp BP Pulse Ox 08/06/20 04:30 100 H 20 94 08/06/20 04:00 100 H 21 95 08/06/20 03:30 103 H 20 93 08/06/20 03:00 103 H 17 93 08/06/20 02:33 105 H 16 97 08/06/20 02:31 106 H 18 169/94 H 96 08/06/20 02:00 98 H 16 99 08/06/20 01:30 98 H 20 08/06/20 01:24 97 H 21 96 08/06/20 01:19 100 H 22 156/97 H 96 08/05/20 23:58 99.1 F 107 H 18 143/84 H 95 Laboratory Results Laboratory Results WBC 15.71 K/uL (4.8-10.8) H 08/06/20 01:20 RBC 4.89 M/uL (4.7-6.1) 08/06/20 01:20 Hgb 16.1 g/dL (14.0-18.0) 08/06/20 01:20 Hct 45.7 % (42-52) 08/06/20 01:20 MCV 93.5 fL (80-100) 08/06/20 01:20 MCH 32.9 pg (25-34) 08/06/20 01:20 MCHC 35.2 g/dL (32-36) 08/06/20 01:20 RDW Std Deviation 43.3 fL (36.4-46.3) 08/06/20 01:20 RDW Coeff of Fortino 12.5 % (11.5-14.5) 08/06/20 01:20 Plt Count 207 K/uL (130-400) 08/06/20 01:20 MPV 10.3 fL (7.4-10.4) 08/06/20 01:20 Immature Gran % (Auto) 0.3 % 08/06/20 01:20 Neut % (Auto) 79.7 % 08/06/20 01:20 Lymph % (Auto) 9.5 % 08/06/20 01:20 [place] % (Auto) 10.2 % 08/06/20 01:20 Eos % (Auto) 0.1 % 08/06/20 01:20 Baso % (Auto) 0.2 % 08/06/20 01:20 Neut # (Auto) 12.52 K/uL (1.4-6.5) H 08/06/20 01:20 Lymph # (Auto) 1.50 K/uL (1.2-3.4) 08/06/20 01:20 [place] # (Auto) 1.60 K/uL (0.11-0.59) H 08/06/20 01:20 Eos # (Auto) 0.02 K/uL (0-0.5) 08/06/20 01:20 Baso # (Auto) 0.03 K/uL (0-0.2) 08/06/20 01:20 Immature Gran # (Auto) 0.04 K/uL (0.00-0.02) H 08/06/20 01:20 Sodium 137 mmol/L (136-145) 08/06/20 01:20 Potassium 4.0 mmol/L (3.5-5.1) 08/06/20 01:20 Chloride 104 mmol/L (98-107) 08/06/20 01:20 Carbon Dioxide 26 mmol/L (21-32) 08/06/20 01:20 Anion Gap 7.0 (3-11) 08/06/20 01:20 BUN 10 mg/dl (7-18) 08/06/20 01:20 Creatinine 1.14 mg/dl (0.6-1.4) 08/06/20 01:20 Est Cr Clr Drug Dosing 62.9 ml/min 08/06/20 01:20 Est GFR ( Amer) 76.7 ml/min 08/06/20 01:20 Est GFR (Non-Af Amer) 66.2 ml/min 08/06/20 01:20 BUN/Creatinine Ratio 8.8 (10-20) L 08/06/20 01:20 Glucose 124 mg/dl (70-99) H 08/06/20 01:20 Calcium 9.3 mg/dl (8.5-10.1) 08/06/20 01:20 Total Bilirubin 1.2 mg/dl (0.2-1) H 08/06/20 01:20 AST 16 U/L (15-37) 08/06/20 01:20 ALT 22 U/L (12-78) 08/06/20 01:20 Alkaline Phosphatase 70 U/L (45-117) 08/06/20 01:20 Total Protein 7.9 gm/dl (6.4-8.2) 08/06/20 01:20 Albumin 3.9 gm/dl (3.4-5.0) 08/06/20 01:20 Globulin 4.0 gm/dl (2.5-4.0) 08/06/20 01:20 Albumin/Globulin Ratio 1.0 (0.9-2) 08/06/20 01:20 COVID-19 Eval Order Covid19 at [facility] 08/06/20 01:20 SARS-CoV-2 (PCR) NEGATIVE (Negative) 08/06/20 01:20 Diagnostic Findings [facility] Patient: NADIA LUNDY (Male) : 54 Status: ER Date: 08/06/20 02:31 Room #: History: eval for epiglottitis Slices: [id number] Priors: Tech: Rakesh Bowling @ [id number] Exams: CT NECK Contrast: IV Amt: 94 ml optiray 320 Accession Numbers: [id number] Preliminary Findings Only See Final Report For Complete Findings CT NECK: Diffuse enlarged and edematous epiglottis consistent with epiglottitis with severe narrowing of the underlying airway. Near complete effacement of the vallecula and piriform sinuses. Mildly enlarged right tonsil with 7 x 11 mm central hypodensity consistent with tonsillitis with tonsillar abscess. Patent subglottic airway Cervical soft tissues are unremarkable. No mass or adenopathy. Visualized upper lungs and mediastinal structures are unremarkable. No acute osseous abnormality. Mucous retention cyst or polyp in the right maxillary sinus. Radiologist: Scott Ch M.D. Study ready at 02:35 and initial results transmitted at 04:22 Communications: Clear Time Type Notes 08/06/20 04:23 Call Doctor Regarding Epiglottitis, called Dr. Landeros on 08/06 04:23 (-04:00) *This report constitutes a preliminary interpretation only. Non-acute findings felt to be unrelated to the clinical presentation may not be discussed in this report. The study will be interpreted and a final report will be generated by the local Radiologist the following shift. To reach the hospital radiology department call [phone]. If a discrepancy is found between the preliminary and final interpretations of this study, please notify us via our Client Portal at [email or web address], under QA Exams.You can also fax this report with a description of the discrepancy, or include the final report, to our daytime fax number [phone].If faxing, please indicate the severity of discrepancy using one of the following categories: [ ] 1 - Agree/Informational [ ] 2 - Unlikely to Affect Management [ ] 3 - Possible Eventual Change of Management [ ] 4 - Probable Immediate Change of Management For all other patient related information, please fax us at [phone]. [id number] Code Status & VTE Plan Code Status Full code VTE Prophylaxis Plan VTE Prophylaxis will be ordered: Yes Critical Care Time Critical Care Time: Yes Total Critical Care Time: 40 PG Care Time/CCT Total # of Minutes Spent Total Time Spent with Patient: Total time spent is greater than 50% in coordination of care (as documented) at patient's floor/unit and/or counseling patient: Critical Care Time: Yes Total Critical Care Time: 40 Coding Level of Care Code 95721 Initial Inpt Care Lvl 3 Diagnoses Acute epiglottitis J05.11 Airway obstruction: with obstruction Acute tonsillitis J03.90 Tonsillar abscess J36 Acute airway obstruction J98.8 Admitted to intensive care unit Z78.9 Additional Codes Critical Care Time - Critical Care Time: Yes ([id number]) Time Spent (min) 40 (1) Acute epiglottitis Airway obstruction: with obstruction Qualified Code(s): J05.11 - Acute epiglottitis with obstruction
--- NOTE | 2020-08-06 06:11 | ENT Consultation ---
Date of Consultation August 06, 2020 Assessment & Plan (1) Acute epiglottitis: (2) Acute supraglottitis with epiglottitis in adult: 69yM previously healthy with acute epiglottitis/supraglottitis. FFL with diffuse edema of epiglottis, bilateral AE folds, bilateral arytenoids. Partial visualization of glottis/TVF with mild limitation in abduction. Clinically stable without dyspnea, desaturation, or stridor. Some difficulty managing secretions. Airway is patent, although somewhat tenuous. Given subjective improvement with abx/steroids and absence of respiratory distress/stridor, it is reasonable to continue medical management with close monitoring. -Agree with ICU admission -Decadron 10mg Q8H x3-4 doses at least -Abx to cover common oropharyngeal pathogens - unasyn or broader -NPO, IVF -Continuous pulse ox -Repeat FFL later today -If patient requires intubation, would recommend awake fiberoptic intubation with small ETT -Discussed red flags that should prompt urgent re-evaluation - worsening dysphonia, dysphagia, dyspnea, stridor -Will continue to follow History of Present Illness Reason for Consultation: epiglottitis History of Present Illness 69yM h/o HLD presenting with 1-2 days progressive sore throat, odynophagia, dysphonia. Possibly low-grade fever. Seen by PCP via telehealth yesterday, COVID testing ordered. Symptoms worsened and presented to ED. Denies otalgia, dyspnea, stridor, orthopnea. No prior episodes of similar symptoms. No prior throat surgeries. No sick contacts or recent trauma. Never smoker, no chewing tobacco or heavy EtOH. In ED, WBC 16. Afebrile, hypertensive and mildly tachycardic. SaO2 >94% on RA. No stridor. I personally reviewed the CT neck which showed edema of R tonsil with subcentimeter hypodensity without rim-enhancement, diffuse edema of the epiglottis and supraglottis, multiple bilateral mildly enlarged cervical lymph nodes. Given vanc/rocephin, decadron. Reports swallowing/voice have improved, pain is stable. Allergies Allergy/AdvReac Type Severity Reaction Status Date / Time No Known Allergies Allergy Verified 08/06/20 00:52 Home Medications Medication Instructions Recorded Confirmed Type No Known Home Medications 08/05/20 08/06/20 History Patient History Medical History (Updated 08/06/20 @ 06:04 by Harshal Kumar MD) Actinic keratoses Hyperlipidemia Surgical History Hx of cataract surgery Hx of LASIK Family History Father Myocardial infarction Prostate cancer Diabetes Denies family history of Ovarian cancer Breast cancer Colorectal cancer Hypertension Social History Smoking Status: Never smoker Second Hand Exposure: No; Hx Alcohol Use: No Hx Substance Use: No marital status: Current Living Situation: Spouse current occupational status: employed 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 Feels Safe at Home: Yes caffeine: No Dental Care, Regularly: No Physical Activity Frequency: Does not Exercise Seatbelt Use: sometimes Sunscreen Use: No Review of Systems Review of Systems: All systems reviewed & are unremarkable except as noted in HPI & below Physical Exam Physical Exam: General: The patient is well-developed, well-nourished, and in no acute distress. Head and Face: Skull: No obvious deformities Sinus tenderness: There is no tenderness to palpation of the sinuses. Salivary glands: The parotid and submandibular glands are normal in appearance and there are no masses on palpation. Facial strength: Facial motion is symmetric and without weakness. Eyes: Eyelids: There is no periorbital edema. Conjunctiva: There is no conjunctival erythema. Pupils: The pupils are equal, round, and reactive to light. Extraocular muscles: Extraocular movement is normal. Nystagmus: There is no nystagmus. Ears: Right auricle: The pinna is normally formed without skin lesion or mass. Left auricle: The pinna is normally formed without skin lesion or mass. Right EAC: There is no external auditory canal erythema, edema, lesion, or mass. Left EAC: There is no external auditory canal erythema, edema, lesion, or mass. Right TM/middle ear: TM is intact without perforation, flat, and translucent. The middle ear space is clear Left TM/middle ear: TM is intact without perforation, flat, and translucent. The middle ear space is clear Hearing: Clinical speech outpatient receptionist threshold testing is grossly normal. Nose: External: There is no gross external deformity, tenderness, or skin lesion or mass. Mucosa: There is no nasal mucosal edema, inflammation, lesion, or mass. Septum: The nasal septum is deviated to the left Nasal cavity: There is no inferior turbinate hypertrophy, edema, inflammation, or mass bilaterally. The inferior meatus and middle meatus were clear bilaterally without mass, lesion, mucopurulence, or polyposis. Oral cavity/Oropharynx: Lips: There are no lip lesions or masses. Oral cavity: There is no inflammation, lesion, or mass involving the gums, gingiva, floor of mouth, buccal mucosa, retromolar trigone, hard palate, soft palate, tongue. FOM soft. Cracked R mandibular molar without evidence of dental infection today. Oropharynx: R tonsillar hypertrophy with erythema, no exudate. No soft palate fullness or uvular deviation. 2-3+ R and 1-2+ L tonsil Neck: General: There are no visible scars or lesions involving the neck. There are no visible or palpable masses involving the neck. The trachea is midline. Lymph nodes: Soft mobile bilateral cervical lymphadenopathy. Thyroid: There is no visible or palpable thyroid enlargement or nodularity. Easily palpable thyroid cartilage, cricoid cartilage, no pulsations inferior to cricoid to indicate high innominate Respiratory/Pulmonary: There is no stertor or stridor. There is normal respiratory effort without acute distress. Cardiovascular: There is no visible extremity edema. Skin: There are no visible lesions or masses involving the skin of the head and neck region. Neurological: Cranial nerves: Cranial nerve II is noted to be intact by grossly normal visual acuity. Cranial nerves III, IV, and are noted to be intact by normal extraocular movements. Cranial nerve V is noted to be intact by normal facial sensation. Cranial nerve VII is noted to be intact by symmetric and normal facial movement. Cranial nerve VIII is noted to be intact by a relatively normal clinical speech outpatient receptionist threshold. Cranial nerve IX is noted to be intact by an intact gag reflex and normal palatal movement. Cranial nerve X is noted to be intact by a normal voice. Cranial nerve XI is noted to be intact by normal shoulder and head movement. Cranial nerve XII is noted to be intact by normal symmetric tongue movement. Vestibular system: The patient has a normal gait. There is no spontaneous or gaze evoked nystagmus. Psychiatric: Mental status: The patient is awake and alert. Mood/affect: The patient has a normal mood and affect. Mildly muffled voice Spitting secretions into basin Procedure: Flexible fiberoptic laryngoscopy Indication: epiglottitis/supraglottitis Details: Following the topical application of afrin and lidocaine, the flexible laryngoscope was inserted into the nasal cavity. The septum, turbinates, and nasal mucosa were as described above. The nasopharynx was normal. The palatine tonsils were as described above. The base of tongue and vallecula were normal. There was diffuse significant edema and erythema of the epiglottis, bilateral AE folds, and R>L arytenoids. The bilateral true vocal folds were partially visualized and appeared to have mildly restricted abduction, although the airway remained patent. The patient tolerated the procedure well. Results & Data ([facility]) Vital Signs (Past 12 Hours) Vital Signs Temp Pulse Resp BP Pulse Ox 08/06/20 04:30 100 H 20 94 08/06/20 04:00 100 H 21 95 08/06/20 03:30 103 H 20 93 08/06/20 03:00 103 H 17 93 08/06/20 02:33 105 H 16 97 08/06/20 02:31 106 H 18 169/94 H 96 08/06/20 02:00 98 H 16 99 08/06/20 01:30 98 H 20 08/06/20 01:24 97 H 21 96 08/06/20 01:19 100 H 22 156/97 H 96 08/05/20 23:58 37.3 C 107 H 18 143/84 H 95 PG Care Time/CCT Total # of Minutes Spent Total Time Spent with Patient: Total time spent is greater than 50% in coordination of care (as documented) at patient's floor/unit and/or counseling patient: Coding Level of Care Code 33917 Office/OBS Consult Lvl 4 (25 - SIGNIFICANT, SEPARATELY IDENTIFIABLE ) Diagnoses Acute epiglottitis J05.11 Airway obstruction: with obstruction Acute supraglottitis with epiglottitis in adult J04.30; J05.10 CPT Codes Diagnostic Laryngoscopy - 66919 ([id number]) (1) Acute epiglottitis Airway obstruction: with obstruction Qualified Code(s): J05.11 - Acute epiglottitis with obstruction
[2020-08-06] MEDS ORDERED: VANCOMYCIN HCL 1,000 MG in SODIUM CHLORIDE 0.9% 250 ML IV SCH (07:14)
[2020-08-06] MEDS ORDERED: ICU PROTOCOL FOR HYPERGLYCEMIA PRN (07:14)
--- NOTE | 2020-08-06 07:25 | CT Scan Report ---
CT soft tissue neck w con HISTORY: Neck pain. Difficulty swallowing. eval for epiglottitis TECHNIQUE: Multiaxial CT images of the neck were performed following the intravenous administration o f contrast. COMPARISON STUDY: None. FINDINGS: The visualized brain parenchyma and orbits are unremarkable. The pterygopalatine fossa are well-maintained. Small retention cyst within the right maxillary sinus. The mastoid air cells are fany ar. No fractures within the visualized osseous structures. No pneumothorax. The trachea is midline an d patent. The major cervical vessels enhance normally. Normal thyroid gland. The parotid and submandi bular glands are symmetric. Slightly prominent right upper cervical lymph nodes. Prevertebral soft ti ssues are normal in thickness. Diffuse edema/thickening within the supraglottic soft tissues extendin g to the level the epiglottis. The epiglottis is thickened up to 12 mm. This results in severe narrow ing of the supraglottic airway. There is near complete effacement of the vallecula and piriform sinus es. Slightly prominent right palatine tonsil with a 11 mm hypodense focus best seen on image 48. This is nonspecific and could represent a small developing peritonsillar abscess. IMPRESSION: 1. Severe thickening/edema within the supraglottic soft tissues including the epiglottis as described above. This could be due to an epiglottitis or angioedema. This results in severe narrowing of the s upraglottic airway. 2. An 11 mm hypodensity within the right palatine tonsil. This may represent a small developing perit onsillar abscess. ACT 112: Negative or not required by law. Electronically signed by: Doe Oswald M.D. 08/06/2020 7:24 AM
[2020-08-06] MEDS ORDERED: dexAMETHasone 6 MG in SYRINGE 0 ML IV SCH (08:00)
[2020-08-06] MEDS ORDERED: AZITHROMYCIN 500 MG in DEXTROSE 5% 250 ML IV SCH (08:00)
[2020-08-06] MEDS: NSS + 20MEQ KCL 20 MEQ/1,000 ML BAG IV SCH ×2 (08:04→17:42)
[2020-08-06] MEDS: FAMOTIDINE 20 MG in SYRINGE 3 ML IV SCH ×2 (08:04→20:02)
--- NOTE | 2020-08-06 08:26 | XRay Report ---
SINGLE VIEW CHEST CLINICAL HISTORY: Dyspnea. FINDINGS: An AP, portable, upright chest radiograph is compared to study dated 04/12/2016. The heart i s top normal for projection noting atherosclerotic calcification of the thoracic aorta. The lungs and pleural spaces are clear. No pneumothorax is seen. The bony thorax is grossly intact. IMPRESSION: No active disease in the chest. ACT 112: Negative or not required by law. Electronically signed by: Judah Gaffney M.D. 08/06/2020 8:25 AM
--- NOTE | 2020-08-06 11:52 | Critical Care Consultation ---
Date of Consultation August 06, 2020 Assessment & Plan (1) Acute supraglottitis with epiglottitis in adult: Continue to monitor in the ICU and if symptoms continue to improve by mid afternoon, then he can be downgraded out of the ICU. Continue Decadron 10 mg every 8 hours per ENT recommendation. Antibiotics changed to Unasyn. Azithromycin discontinued. No need for an invasive airway at this time as he is saturating well and able to control his own secretions. No stridor noted on exam. Maintain n.p.o. status. Continue IV fluids while n.p.o. History of Present Illness Reason for Consultation: Epiglottitis Attending Physician: Eleazar Owens MD History of Present Illness 69-year-old male with a history of hyperlipidemia who presented to the ER due to increasing odynophagia. He notes his symptoms of sore throat and odynophagia began Wednesday. He does not have a thermometer at home, but noted subjective fever. His symptoms became progressively worse yesterday evening so he decided to come to the ER. He denies any history of tobacco use including chewing tobacco. No prior surgeries on his neck. He was evaluated by ENT. He was brought to the ICU as a precaution for monitoring of his airway. He received 10 mg of Decadron in the ER. He was also started on Rocephin, vancomycin and azithromycin. Allergies Allergy/AdvReac Type Severity Reaction Status Date / Time No Known Allergies Allergy Verified 08/06/20 00:52 Home Medications Medication Instructions Recorded Confirmed Type No Known Home Medications 08/05/20 08/06/20 History Patient History Medical History Actinic keratoses Hyperlipidemia Surgical History Hx of cataract surgery Hx of LASIK Family History Father Myocardial infarction Prostate cancer Diabetes Denies family history of Ovarian cancer Breast cancer Colorectal cancer Hypertension Social History Smoking Status: Never smoker Second Hand Exposure: No; Hx Alcohol Use: No Hx Substance Use: No Communication Ability: Effective Shellfish Grower Required: No Beliefs That Will Affect Care: None marital status: Current Living Situation: Spouse current occupational status: employed 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 Feels Safe at Home: Yes caffeine: No Dental Care, Regularly: No Physical Activity Frequency: Does not Exercise Seatbelt Use: sometimes Sunscreen Use: No Assistive Devices: None Review of Systems Review of Systems: All systems reviewed & are unremarkable except as noted in HPI & below Physical Exam Constitutional: WD/WN, vitals as above Neck: trachea midline, no thyromegaly Respiratory: normal respiratory effort, lungs clear to auscultation + cough Cardiovascular: RRR, no murmur, no edema Gastrointestinal (Abdomen): normal bowel sounds, soft, nontender, no hepatosplenomegaly Musculoskeletal: no cyanosis or clubbing, extremities motor strength 5/5 Skin: no rashes, warm and dry Neurologic: PERRL, EOMI, accommodation nl, no face palsy, no dysarthria Psychiatric: A+Ox3, euthymic affect Results & Data Results & Data ([facility]) Vital Signs (Past 12 Hours) Vital Signs Temp Pulse Pulse Resp BP BP Pulse Ox 08/06/20 09:00 98 H 19 94 08/06/20 08:54 96 H 19 140/92 93 08/06/20 08:00 96 H 22 94 08/06/20 07:54 91 H 17 135/86 93 08/06/20 07:00 99.1 F 100 H 110 H 13 139/96 93 08/06/20 06:31 100 H 18 169/88 H 95 08/06/20 06:00 101 H 16 95 08/06/20 05:30 103 H 24 95 08/06/20 05:00 104 H 24 95 08/06/20 04:30 100 H 20 94 08/06/20 04:00 100 H 21 95 08/06/20 03:30 103 H 20 93 08/06/20 03:00 103 H 17 93 08/06/20 02:33 105 H 16 97 08/06/20 02:31 106 H 18 169/94 H 96 08/06/20 02:00 98 H 16 99 08/06/20 01:30 98 H 20 08/06/20 01:24 97 H 21 96 08/06/20 01:19 100 H 22 156/97 H 96 08/05/20 23:58 99.1 F 107 H 18 143/84 H 95 Pulse Ox 08/06/20 09:00 08/06/20 08:54 08/06/20 08:00 08/06/20 07:54 08/06/20 07:00 94 08/06/20 06:31 08/06/20 06:00 08/06/20 05:30 08/06/20 05:00 08/06/20 04:30 08/06/20 04:00 08/06/20 03:30 08/06/20 03:00 08/06/20 02:33 08/06/20 02:31 08/06/20 02:00 08/06/20 01:30 08/06/20 01:24 08/06/20 01:19 08/05/20 23:58 vital signs, labs and imaging reviewed Coding Level of Care Code 85365 Inpt Consult Level 4 Diagnoses Acute supraglottitis with epiglottitis in adult J04.30; J05.10
[2020-08-06] MEDS: AMPICILLIN/SULBACTAM SOD 3,000 MG in 0.9 % SODIUM CHLORIDE 100 ML IV SCH ×3 (11:56→23:51)
[2020-08-06] MEDS: dexAMETHasone 10 MG in SYRINGE 0 ML IV SCH ×2 (12:28→20:03)
--- NOTE | 2020-08-06 13:16 | History & Physical Bridge Note ---
Date of Service August 06, 2020 History & Physical Bridge Note I have examined the patient, reviewed the History & Physical and in the interval since the performance of the History & Physical I have noted the following changes of clinical significance: no changes noted Seen at 8am this morning. Doing better. Able to handle some secretions. Voice is lower, returning to normal. ENT will f/u this afternoon. Likely spend the night in the ICU vs. telemetry if swelling is resolving. Continue abx and steroids.
--- NOTE | 2020-08-06 17:20 | Ears,Nose,Throat Progress Note ---
Date of Service August 06, 2020 Assessment & Plan (1) Acute epiglottitis: (2) Acute supraglottitis with epiglottitis in adult: 69yM previously healthy with acute epiglottitis/supraglottitis. Clinically stable without dyspnea, desaturation, or stridor. Improving on IV abx, steroids both clinically and on FFL, although epiglottis remains quite edematous. Given subjective improvement with abx/steroids and absence of respiratory distress/stridor, it is reasonable to continue medical management with close monitoring. -Continue ICU care -Decadron 10mg Q8H x3-4 doses at least -Unasyn -NPO, IVF -Continuous pulse ox -Repeat FFL tomorrow -If patient requires intubation, would recommend awake fiberoptic intubation with small ETT -Discussed red flags that should prompt urgent re-evaluation - worsening dysphonia, dysphagia, dyspnea, stridor -Will continue to follow Admission and Anticipated Discharge Date Admission Date: August 06, 2020 Subjective Feels somewhat improved - dysphonia, pain, and odynophagia. SaO2 >93% on RA. Physical Exam Physical Exam: WNWD, NAD SaO2 95% on RA No stridor Gravelly, mildly muffled voice Spitting secretions Oropharynx with improvement in R tonsillar hypertrophy/erythema No trismus Procedure: Flexible fiberoptic laryngoscopy Indication: Epiglottitis/supraglottitis Details: Following the topical application of afrin and lidocaine, the flexible laryngoscope was inserted into the nasal cavity. The septum, turbinates, and nasal mucosa were normal aside from L septal deviation with R spur. The nasopharynx was normal. The palatine tonsils were as described above. The base of tongue and vallecula were normal. The epiglottis remained significantly edematous and erythematous without obvious exudate. There was improvement in the edema of the AE folds, arytenoids. Visualization of the larynx was improved. The true vocal folds were normal without masses or lesions. There was normal mobility of the true vocal folds bilaterally. The airway was patent. The bilateral pyriform sinuses and postcricoid space was normal. There was no pooling of secretions. No aspiration or penetration was visualized. The patient tolerated the procedure well. Results & Data ([facility]) Vital Signs (Past 12 Hours) Vital Signs Temp Pulse Pulse Resp BP BP Pulse Ox 08/06/20 12:00 36.6 C 06/15/21 09:00 98 H 19 94 08/06/20 08:54 96 H 19 140/92 93 08/06/20 08:00 96 H 22 94 08/06/20 07:54 91 H 17 135/86 93 08/06/20 07:00 37.3 C 100 H 110 H 13 139/96 93 08/06/20 06:31 100 H 18 169/88 H 95 08/06/20 06:00 101 H 16 95 08/06/20 05:30 103 H 24 95 Pulse Ox 08/06/20 12:00 08/06/20 09:00 08/06/20 08:54 08/06/20 08:00 08/06/20 07:54 08/06/20 07:00 94 08/06/20 06:31 08/06/20 06:00 08/06/20 05:30 PG Care Time/CCT Total # of Minutes Spent Total Time Spent with Patient: Total time spent is greater than 50% in coordination of care (as documented) at patient's floor/unit and/or counseling patient: Coding Level of Care Code None Diagnoses Acute epiglottitis J05.11 Airway obstruction: with obstruction Acute supraglottitis with epiglottitis in adult J04.30; J05.10 CPT Codes Diagnostic Laryngoscopy - 83851 ([id number]) (1) Acute epiglottitis Airway obstruction: with obstruction Qualified Code(s): J05.11 - Acute epiglottitis with obstruction
[2020-08-07] MEDS: dexAMETHasone 10 MG in SYRINGE 0 ML IV SCH ×3 (04:02→19:41)
[2020-08-07] MEDS: NSS + 20MEQ KCL 20 MEQ/1,000 ML BAG IV SCH (04:02)
[2020-08-07] MEDS ORDERED: cefTRIAXone SODIUM 2,000 MG in DEXTROSE 5% 50 ML IV SCH (05:00)
[2020-08-07 05:01] LABS: Basophils # (auto) 0.01 K/uL (0-0.2); Basophils % (auto) 0.1 %; Hematocrit (blood only) 41.9 % (42-52); Hemoglobin 14.5 g/dL (14.0-18.0); Immature Granulocytes # (auto) 0.04 K/uL (0.00-0.02); Immature Granulocytes % (auto) 0.2 %; Lymphocytes # (auto) 0.71 K/uL (1.2-3.4); Lymphocytes % (auto) 4.3 %; Mean Corpuscular Hemoglobin 31.9 pg (25-34); Mean Corpuscular Hgb Conc 34.6 g/dL (32-36); Mean Corpuscular Volume 92.1 fL (80-100); Mean Platelet Volume 10.4 fL (7.4-10.4); Monocytes # (auto) 0.74 K/uL (0.11-0.59); Monocytes % (auto) 4.5 %; Neutrophils # (auto) 14.94 K/uL (1.4-6.5); Neutrophils % (auto) 90.9 %; Platelet Count 192 K/uL (130-400); RDW Coefficient of Variation 12.8 % (11.5-14.5); RDW Standard Deviation 43.2 fL (36.4-46.3); Red Blood Count 4.55 M/uL (4.7-6.1); White Blood Count 16.44 K/uL (4.8-10.8)
[2020-08-07 05:14] LABS: Partial Thromboplastin Ratio 1.1; Partial Thromboplastin Time 29.9 Seconds (21.0-31.0); Prothrombin Time 10.3 Seconds (9.0-12.0)
[2020-08-07 05:19] LABS: BUN Creatinine Ratio 18.9 (10-20); Calcium 8.6 mg/dl (8.5-10.1); Creatinine Clr Calc Pharmacy 78.8 ml/min; Est GFR (African American) 100.7 ml/min; Est GFR (Non-African American) 86.9 ml/min; Magnesium 2.3 mg/dl (1.8-2.4); Potassium 4.2 mmol/L (3.5-5.1)
[2020-08-07] MEDS: AMPICILLIN/SULBACTAM SOD 3,000 MG in 0.9 % SODIUM CHLORIDE 100 ML IV SCH ×4 (05:26→23:09)
[2020-08-07 06:19] LABS: Albumin Globulin Ratio 0.8 (0.9-2); Bilirubin,Total 0.5 mg/dl (0.2-1); Globulin 3.8 gm/dl (2.5-4.0); Phosphorus 2.4 mg/dl (2.5-4.9); Total Protein 6.8 gm/dl (6.4-8.2)
[2020-08-07] MEDS ORDERED: SODIUM PHOSPHATE 3 MMOL/1 ML INFUSION IV STA (07:51)
[2020-08-07] MEDS: FAMOTIDINE 20 MG in SYRINGE 3 ML IV SCH ×2 (07:52→20:53)
[2020-08-07] MEDS ORDERED: SODIUM PHOSPHATE 21 MMOL in SODIUM CHLORIDE 0.9% 500 ML IV ONE (08:00)
[2020-08-07] MEDS ORDERED: dexAMETHasone 6 MG in SYRINGE 0 ML IV SCH (08:00)
--- NOTE | 2020-08-07 09:10 | Critical Care Progress Note ---
Date of Service August 07, 2020 Assessment & Plan (1) Acute supraglottitis with epiglottitis in adult: His symptoms continue to improve substantially. Greatly appreciate ENT input. Continue with Decadron and Unasyn today. Continue clear liquid diet. IV fluids discontinued. Glucose has been stable. Electrolytes are being replaced. Stable for downgrade in the afternoon. (2) Hypophosphatemia: Admission and Anticipated Discharge Date Admission Date: August 06, 2020 Subjective Patient seen and examined this morning. He is tolerating clear liquids. He does feel a sensation of needing to cough occasionally when drinking. He denies any chest pain. He feels that his speech is improved. He has less pain when swallowing. Review of Systems Review of Systems: All systems reviewed & are unremarkable except as noted in HPI & below Physical Exam Constitutional: WD/WN, vitals as above Neck: trachea midline, no thyromegaly Respiratory: normal respiratory effort, lungs clear to auscultation Cardiovascular: RRR, no murmur, no edema Gastrointestinal (Abdomen): normal bowel sounds, soft, nontender, no hepatosplenomegaly Musculoskeletal: no cyanosis or clubbing, extremities motor strength 5/5 Skin: no rashes, warm and dry Neurologic: PERRL, EOMI, accommodation nl, no face palsy, no dysarthria Psychiatric: A+Ox3, euthymic affect Results & Data Results & Data ([facility]) Vital Signs (Past 12 Hours) Vital Signs Temp Pulse Pulse Resp BP BP Pulse Ox 08/07/20 07:14 98.6 F 87 101 H 22 128/99 94 08/07/20 04:00 97.5 F L 08/07/20 03:54 87 17 112/83 94 08/07/20 03:45 74 16 95 08/07/20 03:24 80 16 116/76 95 08/07/20 03:15 89 14 95 08/07/20 02:54 80 12 108/73 92 08/07/20 02:45 76 14 91 08/07/20 02:24 84 16 130/82 94 08/07/20 02:15 74 15 96 08/07/20 01:54 84 16 122/67 95 08/07/20 01:45 89 16 95 08/07/20 01:34 82 19 115/75 96 08/07/20 01:30 82 17 96 08/07/20 01:24 83 19 109/76 96 08/07/20 01:15 80 21 95 08/07/20 00:54 82 17 121/79 96 08/07/20 00:45 81 14 95 08/07/20 00:24 81 18 107/61 95 08/07/20 00:15 89 12 96 08/07/20 00:10 98.6 F 08/06/20 23:54 98 H 31 H 129/82 95 08/06/20 23:45 80 15 96 08/06/20 23:24 87 14 118/79 95 08/06/20 23:15 81 13 95 08/06/20 22:54 90 13 130/84 95 08/06/20 22:45 94 H 15 96 08/06/20 22:24 97 H 13 134/84 95 08/06/20 22:15 85 17 92 08/06/20 21:54 80 18 123/76 91 08/06/20 21:45 69 17 92 08/06/20 21:24 78 16 123/83 92 08/06/20 21:15 90 20 93 Coding Level of Care Code 50757 Subseq Hosp Care Lvl 2 Diagnoses Acute supraglottitis with epiglottitis in adult J04.30; J05.10 Hypophosphatemia E83.39
--- NOTE | 2020-08-07 12:12 | Ears,Nose,Throat Progress Note ---
Date of Service August 07, 2020 Assessment & Plan (1) Acute epiglottitis: (2) Acute supraglottitis with epiglottitis in adult: 69yM previously healthy with acute epiglottitis/supraglottitis. Clinically stable without dyspnea, desaturation, or stridor. Improving on IV abx, steroids both clinically and on FFL, although epiglottis remains quite edematous. Given subjective improvement with abx/steroids and absence of respiratory distress/stridor, it is reasonable to continue medical management with close monitoring. -Consider transfer to floor -Would continue decadron 10mg Q8H for 48 hours, then taper -Unasyn -OK for clears from ENT standpoint -Continuous pulse ox -Repeat FFL tomorrow -If patient requires intubation, would recommend awake fiberoptic intubation with small ETT -Discussed red flags that should prompt urgent re-evaluation - worsening dysphonia, dysphagia, dyspnea, stridor -Will continue to follow Admission and Anticipated Discharge Date Admission Date: August 06, 2020 Subjective Desat to 89% on RA while sleeping, improved with O2 via NC. Feels subjectively improved. Managing secretions easier, voice improved, pain improving. No stridor Physical Exam Physical Exam: WNWD, NAD SaO2 95% on NC No trismus Improved voice No increased WOB, no stridor Mild bilateral palpable adenopathy, improving Procedure: Flexible fiberoptic laryngoscopy Indication: epiglottitis Details: Following the topical application of afrin and lidocaine, the flexible laryngoscope was inserted into the nasal cavity. The septum, turbinates, and nasal mucosa were normal. The nasopharynx was normal. The palatine tonsils were normal bilaterally. The base of tongue and vallecula were normal. There was interval improvement of the erythema and edema of the epiglottis, although remains edematous. Improved visualization of the glottis. The true vocal folds were normal without masses or lesions. There was normal mobility of the true vocal folds bilaterally. The bilateral pyriform sinuses and postcricoid space was normal. There was no pooling of secretions. No aspiration or penetration was visualized. The patient tolerated the procedure well. Results & Data ([facility]) Vital Signs (Past 12 Hours) Vital Signs Temp Pulse Pulse Resp BP BP Pulse Ox 08/07/20 11:15 91 H 20 97 08/07/20 11:00 36.8 C 97 H 28 H 98 08/07/20 10:54 96 H 25 H 131/89 97 08/07/20 10:48 99 H 8 L 98 08/07/20 10:30 89 17 96 08/07/20 10:15 94 H 22 95 08/07/20 10:00 87 21 96 08/07/20 09:54 87 16 124/81 96 08/07/20 09:45 92 H 17 95 08/07/20 09:30 101 H 20 96 08/07/20 09:15 103 H 22 97 08/07/20 09:00 97 H 19 95 08/07/20 08:54 87 15 148/73 H 95 08/07/20 08:45 83 14 96 08/07/20 08:30 85 21 96 08/07/20 08:15 65 23 93 08/07/20 08:00 94 H 15 88 L 08/07/20 07:54 88 20 157/78 H 95 08/07/20 07:45 88 17 93 08/07/20 07:30 92 08/07/20 07:15 87 15 92 08/07/20 07:14 37.0 C 87 101 H 22 128/99 94 08/07/20 07:00 106 H 24 93 08/07/20 04:00 36.4 C L 08/07/20 03:54 87 17 112/83 94 08/07/20 03:45 74 16 95 08/07/20 03:24 80 16 116/76 95 08/07/20 03:15 89 14 95 08/07/20 02:54 80 12 108/73 92 08/07/20 02:45 76 14 91 08/07/20 02:24 84 16 130/82 94 08/07/20 02:15 74 15 96 08/07/20 01:54 84 16 122/67 95 08/07/20 01:45 89 16 95 08/07/20 01:34 82 19 115/75 96 08/07/20 01:30 82 17 96 08/07/20 01:24 83 19 109/76 96 08/07/20 01:15 80 21 95 08/07/20 00:54 82 17 121/79 96 08/07/20 00:45 81 14 95 08/07/20 00:24 81 18 107/61 95 08/07/20 00:15 89 12 96 08/07/20 00:10 37.0 C PG Care Time/CCT Total # of Minutes Spent Total Time Spent with Patient: Total time spent is greater than 50% in coordination of care (as documented) at patient's floor/unit and/or counseling patient: Coding Level of Care Code 16495 Subseq Hosp Care Lvl 2 (25 - SIGNIFICANT, SEPARATELY IDENTIFIABLE ) Diagnoses Acute epiglottitis J05.11 Airway obstruction: with obstruction Acute supraglottitis with epiglottitis in adult J04.30; J05.10 CPT Codes Diagnostic Laryngoscopy - 80197 ([id number]) (1) Acute epiglottitis Airway obstruction: with obstruction Qualified Code(s): J05.11 - Acute epiglottitis with obstruction
--- NOTE | 2020-08-07 22:15 | Hospitalist Progress Note ---
Date of Service August 07, 2020 Assessment & Plan (1) Acute epiglottitis: Acute epiglottitis with severe underlying airway narrowing/acute tonsillitis with tonsillar abscess Now on medical floor, will continue decadron 10 mg IV Q8H Dexamethasone 6 mg IV every 6 hours continue unasyn. Appreciate input from ENT. WILL MONITOR. (2) Acute tonsillitis: See above (3) Tonsillar abscess: See above (4) Acute airway obstruction: see above (5) Admitted to intensive care unit: See above Admission and Anticipated Discharge Date Admission Date: August 06, 2020 Subjective Patient reports feeling better. Not at baseline but swallowing better. He reports his voice is not back to baseline. Review of Systems Review of Systems: All systems reviewed & are unremarkable except as noted in HPI & below Physical Exam Physical Exam: The patient is awake, alert and oriented 3, well developed and well nourished, normocephalic and atraumatic, lying in bed and in no acute distress. HEENT--PERRL, EOMI, mucous membranes and oropharynx dry. Neck--supple. No JVD. No bruits. Thyroid normal, trachea midline, no adenopathy. Heart--normal S1 and S2. No murmurs, rubs or gallops. Lungs--clear bilaterally, no respiratory distress, no accessory muscle use. Abdomen--normal bowel sounds and soft. Nontender. Nondistended, no hernias or masses, no organomegaly. Extremities--no cyanosis or clubbing. No edema. Dermatologic--normal skin turgor, normal color, no abnormal lymph nodes, no rash. Neurologic--cranial nerves II through XII grossly intact. Rheumatologic--normal range of motion. Psychiatric--normal affect. Results & Data Results & Data ([facility]) Vital Signs (Past 12 Hours) Vital Signs Temp Pulse Pulse Resp BP BP Pulse Ox 08/07/20 17:34 36.7 C 79 16 139/85 97 08/07/20 15:00 78 08/07/20 14:54 78 20 129/86 99 08/07/20 14:00 94 H 22 96 08/07/20 13:54 84 18 135/81 96 08/07/20 13:00 95 H 19 98 08/07/20 12:54 102 H 17 126/86 98 08/07/20 12:00 91 H 18 97 06/16/21 11:54 91 H 18 114/82 97 08/07/20 11:15 91 H 20 97 08/07/20 11:00 36.8 C 97 H 28 H 98 08/07/20 10:54 96 H 25 H 131/89 97 08/07/20 10:48 99 H 8 L 98 08/07/20 10:30 89 17 96 PG Care Time/CCT Total # of Minutes Spent Total Time Spent with Patient: Total time spent is greater than 50% in coordination of care (as documented) at patient's floor/unit and/or counseling patient: Coding Level of Care Code 36910 Subseq Hosp Care Lvl 2 Diagnoses Acute epiglottitis J05.11 Airway obstruction: with obstruction Acute tonsillitis J03.90 Tonsillar abscess J36 Acute airway obstruction J98.8 Admitted to intensive care unit Z78.9 (1) Acute epiglottitis Airway obstruction: with obstruction Qualified Code(s): J05.11 - Acute epiglottitis with obstruction
[2020-08-08] MEDS: dexAMETHasone 10 MG in SYRINGE 0 ML IV SCH ×2 (04:57→13:33)
[2020-08-08] MEDS: AMPICILLIN/SULBACTAM SOD 3,000 MG in 0.9 % SODIUM CHLORIDE 100 ML IV SCH ×4 (04:57→23:59)
[2020-08-08 07:08] LABS: Hemoglobin 14.4 g/dL (14.0-18.0); Immature Granulocytes # (auto) 0.04 K/uL (0.00-0.02); Immature Granulocytes % (auto) 0.3 %; Lymphocytes # (auto) 0.79 K/uL (1.2-3.4); Lymphocytes % (auto) 6.3 %; Mean Corpuscular Hemoglobin 32.2 pg (25-34); Mean Corpuscular Hgb Conc 34.3 g/dL (32-36); Mean Platelet Volume 10.9 fL (7.4-10.4); Monocytes # (auto) 0.44 K/uL (0.11-0.59); Monocytes % (auto) 3.5 %; Neutrophils # (auto) 11.22 K/uL (1.4-6.5); Neutrophils % (auto) 89.9 %; Platelet Count 231 K/uL (130-400); RDW Coefficient of Variation 12.9 % (11.5-14.5); RDW Standard Deviation 44.7 fL (36.4-46.3); Red Blood Count 4.47 M/uL (4.7-6.1); White Blood Count 12.49 K/uL (4.8-10.8)
[2020-08-08 07:18] LABS: Partial Thromboplastin Ratio 1.1; Partial Thromboplastin Time 28.3 Seconds (21.0-31.0); Prothrombin Time 10.3 Seconds (9.0-12.0)
[2020-08-08 07:29] LABS: Albumin Level 2.9 gm/dl (3.4-5.0); BUN Creatinine Ratio 22.8 (10-20); Calcium 8.3 mg/dl (8.5-10.1); Creatinine Clr Calc Pharmacy 78.8 ml/min; Est GFR (African American) 100.7 ml/min; Est GFR (Non-African American) 86.9 ml/min; Magnesium 2.6 mg/dl (1.8-2.4); Potassium 4.2 mmol/L (3.5-5.1)
[2020-08-08 07:39] LABS: Albumin Globulin Ratio 0.7 (0.9-2); Bilirubin,Total 0.5 mg/dl (0.2-1); Phosphorus 3.1 mg/dl (2.5-4.9); Total Protein 6.9 gm/dl (6.4-8.2)
[2020-08-08] MEDS: FAMOTIDINE 20 MG in SYRINGE 3 ML IV SCH ×2 (09:48→19:36)
--- NOTE | 2020-08-08 10:22 | Ears,Nose,Throat Progress Note ---
Date of Service August 08, 2020 Assessment & Plan (1) Acute epiglottitis: (2) Acute supraglottitis with epiglottitis in adult: 69yM previously healthy with acute epiglottitis/supraglottitis. Clinically stable without dyspnea, desaturation, or stridor. Improving on IV abx, steroids both clinically and on FFL, although epiglottis remains quite edematous. Given subjective improvement with abx/steroids and absence of respiratory distress/stridor, it is reasonable to continue medical management with close monitoring. -Continue inpatient care -Would consider transition to PO steroids - 12 day taper - 40mg daily x3 days, then 30mg x3 days, then 20mg x3 days, then 10mg x3 days, then off -Would consider transition to augmentin -OK to advance to soft diet, recommend [employer] evaluation if difficulty with dysphagia -Continuous pulse ox -Repeat FFL tomorrow, if continues to improve, possibly will be ready for discharge tomorrow vs. next day from ENT standpoint -If patient requires intubation, would recommend awake fiberoptic intubation with small ETT -Discussed red flags that should prompt urgent re-evaluation - worsening dysphonia, dysphagia, dyspnea, stridor -Will continue to follow Admission and Anticipated Discharge Date Admission Date: August 06, 2020 Subjective Continues to subjectively improve. Toelrated clears with mild dysphagia. Ongoing throat pain but improving. Voice improved. No dyspnea/stridor/desats Physical Exam Physical Exam: WNWD, NAD SaO2 95% on NC No trismus Improved voice No increased WOB, no stridor No cervical adenopathy Oropharynx normal, 1-2+ tonsils bilaterally without erythema or exudate Procedure: Flexible fiberoptic laryngoscopy Indication: epiglottitis Details: Following the topical application of afrin and lidocaine, the flexible laryngoscope was inserted into the nasal cavity. The nasopharynx was normal. The palatine tonsils were normal bilaterally. The base of tongue and vallecula were normal. There was interval improvement of the erythema and edema of the epiglottis, although remains edematous with eschar on lingual surface. Full visualization of the glottis, minimal edema of arytenoids and AE folds. The true vocal folds were normal without masses or lesions. There was normal mobility of the true vocal folds bilaterally. The bilateral pyriform sinuses and postcricoid space was normal. There was no pooling of secretions. No aspiration or penetration was visualized. The patient tolerated the procedure well. Results & Data ([facility]) Vital Signs (Past 12 Hours) Vital Signs Temp Pulse Resp BP BP Pulse Ox 08/08/20 07:41 36.9 C 52 L 18 137/80 95 08/07/20 23:04 36.5 C 74 16 113/69 95 PG Care Time/CCT Total # of Minutes Spent Total Time Spent with Patient: Total time spent is greater than 50% in coordination of care (as documented) at patient's floor/unit and/or counseling patient: Coding Level of Care Code 67407 Subseq Hosp Care Lvl 2 (25 - SIGNIFICANT, SEPARATELY IDENTIFIABLE ) Diagnoses Acute epiglottitis J05.11 Airway obstruction: with obstruction Acute supraglottitis with epiglottitis in adult J04.30; J05.10 (1) Acute epiglottitis Airway obstruction: with obstruction Qualified Code(s): J05.11 - Acute epiglottitis with obstruction
--- NOTE | 2020-08-08 22:30 | Hospitalist Progress Note ---
Date of Service August 08, 2020 Assessment & Plan (1) Acute epiglottitis: Acute epiglottitis with severe underlying airway narrowing/acute tonsillitis with tonsillar abscess Now on medical floor, will transition decadron to prednisone daily. continue unasyn. Appreciate input from ENT. WILL MONITOR. (2) Acute tonsillitis: See above (3) Tonsillar abscess: See above (4) Acute airway obstruction: see above (5) Admitted to intensive care unit: See above Admission and Anticipated Discharge Date Admission Date: August 06, 2020 Subjective 69 YO MALE reports feeling well. He has no new complaints. He reports his voice is better. Review of Systems Review of Systems: All systems reviewed & are unremarkable except as noted in HPI & below Physical Exam Physical Exam: The patient is awake, alert and oriented 3, well developed and well nourished, normocephalic and atraumatic, lying in bed and in no acute distress. HEENT--PERRL, EOMI, mucous membranes and oropharynx dry. Neck--supple. No JVD. No bruits. Thyroid normal, trachea midline, no adenopathy. Heart--normal S1 and S2. No murmurs, rubs or gallops. Lungs--clear bilaterally, no respiratory distress, no accessory muscle use. Abdomen--normal bowel sounds and soft. Nontender. Nondistended, no hernias or masses, no organomegaly. Extremities--no cyanosis or clubbing. No edema. Dermatologic--normal skin turgor, normal color, no abnormal lymph nodes, no rash. Neurologic--cranial nerves II through XII grossly intact. Rheumatologic--normal range of motion. Psychiatric--normal affect. Results & Data Results & Data ([facility]) Vital Signs (Past 12 Hours) Vital Signs Temp Pulse Resp BP Pulse Ox 08/08/20 16:00 36.2 C L 73 18 128/81 96 PG Care Time/CCT Total # of Minutes Spent Total Time Spent with Patient: Total time spent is greater than 50% in [facility] (as documented) at patient's floor/unit and/or counseling patient: Coding Level of Care Code 56868 Subseq Hosp Care Lvl 2 Diagnoses Acute epiglottitis J05.11 Airway obstruction: with obstruction Acute tonsillitis J03.90 Tonsillar abscess J36 Acute airway obstruction J98.8 Admitted to intensive care unit Z78.9 Time Spent (min) 25 (1) Acute epiglottitis Airway obstruction: with obstruction Qualified Code(s): J05.11 - Acute epiglottitis with obstruction
[2020-08-09] MEDS: AMPICILLIN/SULBACTAM SOD 3,000 MG in 0.9 % SODIUM CHLORIDE 100 ML IV SCH ×2 (05:19→12:13)
[2020-08-09 07:18] LABS: Partial Thromboplastin Ratio 1.1; Prothrombin Time 10.6 Seconds (9.0-12.0)
[2020-08-09 07:23] LABS: Albumin Level 2.9 gm/dl (3.4-5.0); BUN Creatinine Ratio 21.6 (10-20); Calcium 8.4 mg/dl (8.5-10.1); Est GFR (African American) 88.8 ml/min; Est GFR (Non-African American) 76.6 ml/min; Magnesium 2.5 mg/dl (1.8-2.4); Potassium 3.9 mmol/L (3.5-5.1)
[2020-08-09 07:24] LABS: Basophils # (auto) 0.01 K/uL (0-0.2); Basophils % (auto) 0.1 %; Hematocrit (blood only) 42.2 % (42-52); Hemoglobin 14.3 g/dL (14.0-18.0); Immature Granulocytes # (auto) 0.09 K/uL (0.00-0.02); Mean Corpuscular Hemoglobin 31.9 pg (25-34); Mean Corpuscular Hgb Conc 33.9 g/dL (32-36); Mean Corpuscular Volume 94.2 fL (80-100); Mean Platelet Volume 10.8 fL (7.4-10.4); Monocytes # (auto) 0.86 K/uL (0.11-0.59); Monocytes % (auto) 9.9 %; Neutrophils # (auto) 6.42 K/uL (1.4-6.5); Platelet Count 210 K/uL (130-400); RDW Coefficient of Variation 12.8 % (11.5-14.5); RDW Standard Deviation 44.6 fL (36.4-46.3); Red Blood Count 4.48 M/uL (4.7-6.1); White Blood Count 8.68 K/uL (4.8-10.8)
[2020-08-09 07:29] LABS: Albumin Globulin Ratio 0.8 (0.9-2); Bilirubin,Total 0.5 mg/dl (0.2-1); Globulin 3.9 gm/dl (2.5-4.0); Phosphorus 3.8 mg/dl (2.5-4.9); Total Protein 6.8 gm/dl (6.4-8.2)
[2020-08-09] MEDS: predniSONE 20 MG TAB PO SCH (08:21)
[2020-08-09] MEDS: FAMOTIDINE 20 MG in SYRINGE 3 ML IV SCH ×2 (08:21→20:54)
--- NOTE | 2020-08-09 14:13 | Ears,Nose,Throat Progress Note ---
Date of Service August 09, 2020 Assessment & Plan (1) Acute epiglottitis: (2) Acute supraglottitis with epiglottitis in adult: 69yM previously healthy with acute epiglottitis/supraglottitis. Clinically stable without dyspnea, desaturation, or stridor. Improving on IV abx, now oral steroids both clinically and on FFL. -Continue inpatient care -Continue PO steroids - 12 day taper - 40mg daily x3 days, then 30mg x3 days, then 20mg x3 days, then 10mg x3 days, then off -Transition to augmentin -OK to advance to reg diet -If feeling stable or improved tomorrow on PO abx and steroids, ok for discharge home. Recommend 10 days of augmentin and steroid taper as above. Follow up in 2 weeks for repeat FFL in office - we will arrange follow up appt. Admission and Anticipated Discharge Date Admission Date: August 06, 2020 Subjective ALMITA o/n. Feeling better today. Ongoing improvement in throat pain. No dysphagia, tolerating softs. Voice back to normal. No dyspnea/stridor. Physical Exam Physical Exam: WNWD, NAD SaO2 954% on RA No trismus Normal voice No increased WOB, no stridor Procedure: Flexible fiberoptic laryngoscopy Indication: epiglottitis Details: Following the topical application of afrin and lidocaine, the flexible laryngoscope was inserted into the nasal cavity. The nasopharynx was normal. The palatine tonsils were normal bilaterally. The base of tongue and vallecula were normal. There was interval improvement of the erythema and edema of the epiglottis, although remains mildly edematous with eschar on lingual surface. Full visualization of the glottis, no edema of arytenoids and AE folds. The true vocal folds were normal without masses or lesions. There was normal mobility of the true vocal folds bilaterally. The bilateral pyriform sinuses and postcricoid space was normal. There was no pooling of secretions. No aspiration or penetration was visualized. The patient tolerated the procedure well. Results & Data ([facility]) Vital Signs (Past 12 Hours) Vital Signs Temp Pulse Resp BP Pulse Ox 08/09/20 07:15 36.5 C 77 18 138/78 94 PG Care Time/CCT Total # of Minutes Spent Total Time Spent with Patient: Total time spent is greater than 50% in coordination of care (as documented) at patient's floor/unit and/or counseling patient: Coding Level of Care Code 90264 Subseq Hosp Care Lvl 2 (25 - SIGNIFICANT, SEPARATELY IDENTIFIABLE ) Diagnoses Acute epiglottitis J05.11 Airway obstruction: with obstruction Acute supraglottitis with epiglottitis in adult J04.30; J05.10 CPT Codes Diagnostic Laryngoscopy - 68003 ([id number]) (1) Acute epiglottitis Airway obstruction: with obstruction Qualified Code(s): J05.11 - Acute epiglottitis with obstruction
[2020-08-09] MEDS: AMOXICILLIN/CLAVULANATE 875 MG TAB PO SCH (18:14)
--- NOTE | 2020-08-09 22:11 | Hospitalist Progress Note ---
Date of Service August 09, 2020 Assessment & Plan (1) Acute epiglottitis: Acute epiglottitis with severe underlying airway narrowing/acute tonsillitis with tonsillar abscess Now on medical floor, will transition decadron to prednisone daily. change abx to augmentin. Appreciate input from ENT. WILL MONITOR. Discharge likely in AM. (2) Acute tonsillitis: See above (3) Tonsillar abscess: See above (4) Acute airway obstruction: see above (5) Admitted to intensive care unit: See above Admission and Anticipated Discharge Date Admission Date: August 06, 2020 Subjective Patient reports feeling close to discharge. Review of Systems Review of Systems: All systems reviewed & are unremarkable except as noted in HPI & below Physical Exam Physical Exam: The patient is awake, alert and oriented 3, well developed and well nourished, normocephalic and atraumatic, lying in bed and in no acute distress. HEENT--PERRL, EOMI, mucous membranes and oropharynx dry. Neck--supple. No JVD. No bruits. Thyroid normal, trachea midline, no adenopathy . Heart--normal S1 and S2. No murmurs, rubs or gallops. Lungs--clear bilaterally, no respiratory distress, no accessory muscle use. Abdomen--normal bowel sounds and soft. Nontender. Nondistended, no hernias or masses, no organomegaly. Extremities--no cyanosis or clubbing. No edema. Dermatologic--normal skin turgor, normal color, no abnormal lymph nodes, no rash. Neurologic--cranial nerves II through XII grossly intact. Rheumatologic--normal range of motion. Psychiatric--normal affect. Results & Data Results & Data ([facility]) Vital Signs (Past 12 Hours) Vital Signs Temp Pulse Resp BP Pulse Ox 08/09/20 21:53 36.3 C L 58 L 16 136/77 99 08/09/20 16:00 36.7 C 67 18 137/77 98 PG Care Time/CCT Total # of Minutes Spent Total Time Spent with Patient: Total time spent is greater than 50% in coordination of care (as documented) at patient's floor/unit and/or counseling patient: Coding Level of Care Code 67482 Subseq Hosp Care Lvl 2 Diagnoses Acute epiglottitis J05.11 Airway obstruction: with obstruction Acute tonsillitis J03.90 Tonsillar abscess J36 Acute airway obstruction J98.8 Admitted to intensive care unit Z78.9 Time Spent (min) 25 (1) Acute epiglottitis Airway obstruction: with obstruction Qualified Code(s): J05.11 - Acute epiglottitis with obstruction
[2020-08-10] MEDS: predniSONE 20 MG TAB PO SCH (09:10)
[2020-08-10] MEDS: FAMOTIDINE 20 MG in SYRINGE 3 ML IV SCH (09:11)
[2020-08-10] MEDS: AMOXICILLIN/CLAVULANATE 875 MG TAB PO SCH (09:53)
[2020-08-10] MEDS ORDERED: ADVANCED PROBIOTIC 1250 MG CAPSULE PO SCH (12:00)
--- NOTE | 2020-08-13 15:01 | Discharge Summary ---
Date of Service August 10, 2020 Admission HPI Per Admitting Provider The patient is a 69-year-old male with a past medical history including hyperlipidemia, trigger finger, actinic keratoses and abscess. He presents with rapidly progressive dysphagia as noted above. He denies any recent travels or sick exposures. COVID-19 testing in the ED was negative. Significant abnormal laboratories: WBC 15.71, glucose 124, total bilirubin 1.2. CT of the soft tissues of the neck: Diffusely enlarged and edematous epiglottis consistent with epiglottitis with severe narrowing of the underlying airway. Near complete effacement of the vallecula and piriform sinuses. Mildly enlarged right tonsil with 7 x 11 mm central hypodensity consistent with tonsillitis with tonsillar abscess. Patent subglottic airway. Cervical soft tissues are unremarkable with no mass or adenopathy. Visualized upper lungs and mediastinal structures are unremarkable. No acute osseous abnormality. Mucous retention cyst or polyp in the right maxillary sinus In the emergency department patient received the following: Decadron 10 mg IV, ceftriaxone 2 g IV, vancomycin 2000 mg IV, and normal saline 500 mls. Principal Diagnosis acute epiglotitis Discharge Exam The patient is awake, alert and oriented 3, well developed and well nourished, normocephalic and atraumatic, lying in bed and in no acute distress. HEENT--PERRL, EOMI, mucous membranes and oropharynx dry. Neck--supple. No JVD. No bruits. Thyroid normal, trachea midline, no adenopathy. Heart--normal S1 and S2. No murmurs, rubs or gallops. Lungs--clear bilaterally, no respiratory distress, no accessory muscle use. Abdomen--normal bowel sounds and soft. Nontender. Nondistended, no hernias or masses, no organomegaly. Extremities--no cyanosis or clubbing. No edema. Dermatologic--normal skin turgor, normal color, no abnormal lymph nodes, no rash. Neurologic--cranial nerves II through XII grossly intact. Rheumatologic--normal range of motion. Psychiatric--normal affect. Discharge Data Allergies Allergy/AdvReac Type Severity Reaction Status Date / Time No Known Allergies Allergy Verified 08/06/20 00:52 Consultations 08/06/20 04:36 ED Decision to Admit Stat 08/06/20 05:50 Consult Otolaryngology (Head and Neck) Stat 08/06/20 07:14 Consult Engine Room Helper Routine Ordered Studies 08/06/20 01:20 CT soft tissue neck w con Urgent Hospital Course (1) Acute epiglottitis: Acute epiglottitis with severe underlying airway narrowing/acute tonsillitis with tonsillar abscess Now on medical floor, Required IV decadron now transitioned to prednisone daily. Was on IV antibiotics (Unasyn) and now switched to augmentin. Patient is doing well. Had 2 episodes of loose stools which improved with yogurt. Patient was feeling better and tolerating diet. Patient agreeable to discharge. Medications and followup stated in discharge instructions below.. (2) Acute tonsillitis: See above (3) Tonsillar abscess: See above (4) Acute airway obstruction: see above (5) Admitted to intensive care unit: See above Total Time Total Time Spent Total Time Spent (In Minutes): 32 Total Time Includes: Examination of the Patient, Discharge Planning and Medication Reconciliation Discharge Plan Discharge Items Patient Disposition: Home - Self-Care Reason For Visit: EPIGLOTITIS, TONSILLAR ABSCESS Discharge Diagnosis: epiglotitis Activity: Resume your previous activity Non-emergency contact: Primary Care Provider Call non-emergency contact if: you have any medication questions Follow-up/Referrals: Cassi Miranda CRNP [Primary Care Provider] - Harshal Kumar MD [Physician] - (2 weeks) Diet: Regular Diet Comment: avoid sharp or crunchy foods Addtl Attending Provider Instructions: -Continue PO steroids - 12 day taper - 40mg daily x3 days, then 30mg x3 days, then 20mg x3 days, then 10mg x3 days, then off -Continue antibiotics for 9 more days. Follow up in 2 weeks for repeat FFL in office - we will arrange follow up appt. Ok to take yogurt to help with the diarrhea or you an buy over the counter probiotic if you prefer Pending Studies at Discharge: No Stand-Alone Forms: [employer], Smoking Cessation Medications and DC Order Prescriptions: New prednisone 10 mg tablet 10 mg PO DAILY Qty: 22 RF: 0 amoxicillin-pot clavulanate [Augmentin] 875-125 mg Tablet 1 tab PO BIDM Qty: 18 RF: 0 No Action No Known Home Medications RF: 0 Discharge Orders: Discharge Order (Routine); Ordered 08/10/20 Ordered By: Ronny Archibald/Other Patient Handouts: Anatomy of the Digestive System Admission Data Admit Date/Time: 08/06/20 05:26 Attending Provider: Ronny Peterson Admit Provider: Roman Shea Primary Care Provider: Cassi Miranda Other Providers: Eleazar Owens ; Roman Shea ; Harshal Kumar ; Jacques Dixon Other Interventions: Discharge Summary Assessment (RN) Last Done: 08/10/20 15:06 Coding Level of Care Code D/C Day Management >30 mins Diagnoses Acute epiglottitis J05.11 Airway obstruction: with obstruction Acute tonsillitis J03.90 Tonsillar abscess J36 Acute airway obstruction J98.8 Admitted to intensive care unit Z78.9
== END 2020-08-10 16:08 | disposition home or self-care (01) | DRG 153 ==
LOC: ED 23:53 → SUATTDRO 08-06 05:26 → 1E 08-06 05:26 → 3N 08-07 14:40